=== PATIENT | female | born 1945 | race Caucasian/White ===

== ENCOUNTER 2022-01-31 13:41 | Inpatient (IN) | payer MEDICARE ==
[2022-01-31] MEDS ORDERED: SODIUM CHLORIDE 0.9% 500 ML 500 ML IV ONE (14:11)
[2022-01-31 14:34] LABS: Basophils % (A) 0 %; Eosinophils # (A) 0.1 k/uL (0-0.7); Eosinophils % (A) 1 %; HCT 47.7 % (34.0-46.0); HGB 16.3 gm/dL (11.4-16.0); Lymphocytes # (A) 1.9 k/uL (1.0-4.8); Lymphocytes % (A) 21 %; MCH 33.3 pg (25.0-35.0); MCHC 34.2 g/dL (31.0-37.0); MCV 97.6 fL (80.0-100.0); Mean Platelet Volume 7.6; Monocytes # (A) 0.5 k/uL (0-1.0); Monocytes % (A) 5 %; Neutrophils # (A) 6.8 k/uL (1.3-7.7); Neutrophils % (A) 72 %; Platelet Count 305 k/uL (150-450); RBC 4.89 m/uL (3.80-5.40); WBC 9.4 k/uL (3.8-10.6)
--- NOTE | 2022-01-31 14:39 | XR ---
EXAMINATION TYPE: XR chest 2V DATE OF EXAM: 01/31/2022 COMPARISON: 04/25/12 HISTORY: Shortness of breath TECHNIQUE: Frontal and lateral views of the chest are obtained. FINDINGS: Scattered senescent parenchymal changes noted. Hyperinflation compatible with COPD. No evidence for infiltrate. No evidence for atelectasis. Heart size is stable. Mediastinal structures are stable and grossly unremarkable. No evidence for hilar prominence. Degenerative changes dorsal spine. IMPRESSION: 1. No evidence for acute pulmonary disease.
[2022-01-31 14:45] LABS: ALT 25 U/L (4-34); AST 33 U/L (14-36); African American GFR (CKD) >90 (>60 ml/min/1.73 sqM); Albumin 4.3 g/dL (3.5-5.0); Alkaline Phosphatase 52 U/L (38-126); Anion Gap 11 mmol/L; Blood Urea Nitrogen 11 mg/dL (7-17); Calcium 9.7 mg/dL (8.4-10.2); Carbon Dioxide 19 mmol/L (22-30); Chloride 108 mmol/L (98-107); Glucose 139 mg/dL (74-99); Non-African American GFR(CKD) 87 (>60 ml/min/1.73 sqM); Sodium 138 mmol/L (137-145); Total Bilirubin 0.7 mg/dL (0.2-1.3); Total Protein 7.3 g/dL (6.3-8.2)
--- NOTE | 2022-01-31 14:52 | CT ---
EXAMINATION TYPE: CT brain wo con DATE OF EXAM: 01/31/2022 COMPARISON: CT brain 04/25/2022 HISTORY: Altered mental status. CT DLP: 1074.4 mGycm Automated exposure control for dose reduction was used. Helical acquisition through the brain. FINDINGS: Periventricular white matter shows patchy low attenuation. Low-attenuation is present within the basa l ganglia on the left which is an interval finding. There is no hemorrhage or hydrocephalus. Calvariu m is intact. Paranasal sinuses and mastoid air cells as visualized are well aerated. IMPRESSION: SUBACUTE INFARCT SUSPECTED ALONG THE ANTERIOR LIMB OF THE INTERNAL CAPSULE, WOLFF RADIATA. UNDERLYIN G CHRONIC SMALL VESSEL ISCHEMIC CHANGES. CONSIDER BRAIN MRI.
[2022-01-31 15:01] LABS: Potassium 3.9 mmol/L (3.5-5.1)
[2022-01-31 15:09] LABS: Prothrombin Time 10.4 sec (9.0-12.0)
[2022-01-31 15:11] LABS: Partial Thromboplastin Time 21.4 sec (22.0-30.0)
[2022-01-31 15:22] LABS: Appearance,Urine Clear (Clear); Bilirubin,Urine Negative (Negative); Blood,Urine Negative (Negative); Color,Urine Yellow; Glucose,Urine (UA) Negative (Negative); Ketones,Urine Negative (Negative); Leukocyte Esterase,Urine Negative (Negative); Nitrite,Urine Negative (Negative); Protein,Urine Negative (Negative); Specific Gravity,Urine 1.011 (1.001-1.035); Urobilinogen,Urine <2.0 mg/dL (<2.0)
[2022-01-31] MEDS ORDERED: ASPIRIN 325 MG TAB PO STA (15:34)
--- NOTE | 2022-01-31 15:34 | ED ---
General Adult HPI - General Chief complaint: Altered Mental Status Stated complaint: Altered Mental Status, Possible UTI Time Seen by Provider: 01/31/22 14:03 Source: patient, family, RN notes reviewed, old records reviewed Mode of arrival: wheelchair Limitations: no limitations - History of Present Illness Initial comments: 76-year-old female presenting for evaluation of increased confusion. Patient has previous diagnosis of dementia proximally 6 years ago. Over the past 2 weeks she's had increased decline. There is plans to see neurology. Primary care physician was concerned there may be urinary tract infection. The patient has no reported fever. She has been eating and drinking well. She has had some bizarre behavior including using Lomotil for well for a placed. There's been no dysuria. No chest pain. No abdominal pain. Symptoms have progressed over the course of several weeks. - Related Data Home Medications Medication Instructions Recorded Confirmed Thyroid,Pork [[place] Thyroid] 60 mg PO DAILY 01/31/22 01/31/22 glyBURIDE/METFORMIN HCL 2 tab PO DAILY 01/31/22 01/31/22 [glyBURIDE/METFORMIN HCL 5-500 mg] Allergies Allergy/AdvReac Type Severity Reaction Status Date / Time Penicillins Allergy Family Verified 01/31/22 15:39 History Review of Systems ROS Statement: Those systems with pertinent positive or pertinent negative responses have been documented in the HPI. ROS Other: All systems not noted in ROS Statement are negative. Past Medical History Past Medical History: Diabetes Mellitus, Hypertension, Thyroid Disorder History of Any Multi-Drug Resistant Organisms: None Reported Past Surgical History: No Surgical Hx Reported Past Psychological History: No Psychological Hx Reported Smoking Status: Never smoker Past Alcohol Use History: None Reported Past Drug Use History: None Reported General Exam Limitations: no limitations General appearance: alert, in no apparent distress Head exam: Present: atraumatic, normocephalic Eye exam: Present: normal appearance, PERRL ENT exam: Present: normal exam Neck exam: Present: normal inspection. Absent: tenderness, meningismus Respiratory exam: Present: normal lung sounds bilaterally. Absent: respiratory distress, wheezes, rales Cardiovascular Exam: Present: regular rate, normal rhythm GI/Abdominal exam: Present: soft. Absent: distended, tenderness, guarding Extremities exam: Present: normal inspection, normal capillary refill. Absent: pedal edema Back exam: Present: normal inspection Neurological exam: Present: alert, CN II-XII intact. Absent: motor sensory deficit Skin exam: Present: warm, dry, intact. Absent: cyanosis, diaphoretic Course Vital Signs 01/31/22 01/31/22 01/31/22 13:50 14:55 15:00 Temperature 98.8 F Pulse Rate 119 H 113 H 105 H Respiratory 20 18 18 Rate Blood Pressure 154/78 189/111 178/89 O2 Sat by Pulse 94 L 95 94 L Oximetry EKG Findings - EKG Comments: EKG Findings:: EKG: Sinus tachycardia rate of 6, AK interval 156, QRS duration 82, QTC 400, no ST segment elevation. Medical Decision Making - Medical Decision Making 76-year-old female with progressive confusion and altered mental status over the past 2 weeks. Patient has no pain complaints. Mildly hypertensive but otherwise stable vitals. She is in sinus rhythm. She has laboratory testing including CBC, CMP, urinalysis which is unremarkable. Chest x-ray is clear. Head CT does show concern for subacute internal capsule infarct. Patient will be admitted for further stroke evaluation. Case discussed with Dr. Trejo who will admit. Neurology placed on consult. - Lab Data Result diagrams: 01/31/22 14:20 01/31/22 14:20 Lab Results 01/31/22 01/31/22 01/31/22 Range/Units 14:20 14:20 14:20 WBC 9.4 (3.8-10.6) k/uL RBC 4.89 (3.80-5.40) m/uL Hgb 16.3 H (11.4-16.0) gm/dL Hct 47.7 H (34.0-46.0) % MCV 97.6 (80.0-100.0) fL MCH 33.3 (25.0-35.0) pg MCHC 34.2 (31.0-37.0) g/dL RDW 12.0 (11.5-15.5) % Plt Count 305 (150-450) k/uL MPV 7.6 Neutrophils % 72 % Lymphocytes % 21 % Monocytes % 5 % Eosinophils % 1 % Basophils % 0 % Neutrophils # 6.8 (1.3-7.7) k/uL Lymphocytes # 1.9 (1.0-4.8) k/uL Monocytes # 0.5 (0-1.0) k/uL Eosinophils # 0.1 (0-0.7) k/uL Basophils # 0.0 (0-0.2) k/uL PT 10.4 (9.0-12.0) sec INR 1.0 (<1.2) APTT 21.4 L (22.0-30.0) sec Sodium 138 (137-145) mmol/L Potassium 3.9 (3.5-5.1) mmol/L Chloride 108 H (98-107) mmol/L Carbon Dioxide 19 L (22-30) mmol/L Anion Gap 11 mmol/L BUN 11 (7-17) mg/dL Creatinine 0.65 (0.52-1.04) mg/dL Est GFR (CKD-EPI)AfAm >90 (>60 ml/min/1.73 sqM) Est GFR (CKD-EPI)NonAf 87 (>60 ml/min/1.73 sqM) Glucose 139 H (74-99) mg/dL Calcium 9.7 (8.4-10.2) mg/dL Total Bilirubin 0.7 (0.2-1.3) mg/dL AST 33 (14-36) U/L ALT 25 (4-34) U/L Alkaline Phosphatase 52 (38-126) U/L Total Protein 7.3 (6.3-8.2) g/dL Albumin 4.3 (3.5-5.0) g/dL Urine Color Urine Appearance (Clear) Urine pH (5.0-8.0) Ur Specific [place] (1.001-1.035) Urine Protein (Negative) Urine Glucose (UA) (Negative) Urine Ketones (Negative) Urine Blood (Negative) Urine Nitrite (Negative) Urine Bilirubin (Negative) Urine Urobilinogen (<2.0) mg/dL Ur Leukocyte Esterase (Negative) 01/31/22 Range/Units 15:17 WBC (3.8-10.6) k/uL RBC (3.80-5.40) m/uL Hgb (11.4-16.0) gm/dL Hct (34.0-46.0) % MCV (80.0-100.0) fL MCH (25.0-35.0) pg MCHC (31.0-37.0) g/dL RDW (11.5-15.5) % Plt Count (150-450) k/uL MPV Neutrophils % % Lymphocytes % % Monocytes % % Eosinophils % % Basophils % % Neutrophils # (1.3-7.7) k/uL Lymphocytes # (1.0-4.8) k/uL Monocytes # (0-1.0) k/uL Eosinophils # (0-0.7) k/uL Basophils # (0-0.2) k/uL PT (9.0-12.0) sec INR (<1.2) APTT (22.0-30.0) sec Sodium (137-145) mmol/L Potassium (3.5-5.1) mmol/L Chloride (98-107) mmol/L Carbon Dioxide (22-30) mmol/L Anion Gap mmol/L BUN (7-17) mg/dL Creatinine (0.52-1.04) mg/dL Est GFR (CKD-EPI)AfAm (>60 ml/min/1.73 sqM) Est GFR (CKD-EPI)NonAf (>60 ml/min/1.73 sqM) Glucose (74-99) mg/dL Calcium (8.4-10.2) mg/dL Total Bilirubin (0.2-1.3) mg/dL AST (14-36) U/L ALT (4-34) U/L Alkaline Phosphatase (38-126) U/L Total Protein (6.3-8.2) g/dL Albumin (3.5-5.0) g/dL Urine Color Yellow Urine Appearance Clear (Clear) Urine pH 5.0 (5.0-8.0) Ur Specific [place] 1.011 (1.001-1.035) Urine Protein Negative (Negative) Urine Glucose (UA) Negative (Negative) Urine Ketones Negative (Negative) Urine Blood Negative (Negative) Urine Nitrite Negative (Negative) Urine Bilirubin Negative (Negative) Urine Urobilinogen <2.0 (<2.0) mg/dL Ur Leukocyte Esterase Negative (Negative) Disposition Clinical Impression: Altered mental status, CVA (cerebral vascular accident) Disposition: ADMITTED IP TO THIS HOSP Condition: Stable Is patient prescribed a controlled substance at d/c from ED?: No Referrals: Tara Cook MD [Primary Care Provider] - 1-2 days Decision to Admit Reason: Admit from EC Decision Date: 01/31/22 Decision Time: 15:56
--- NOTE | 2022-01-31 17:47 | US ---
EXAMINATION TYPE: US carotid duplex BILAT DATE OF EXAM: 01/31/2022 COMPARISON: NONE CLINICAL HISTORY: Stenosis. Dementia EXAM MEASUREMENTS: RIGHT: Peak Systolic Velocity (PSV) cm/sec ----- Right CCA: 50.3 ----- Right ICA: 49.4 ----- Right ECA: 66.4 ICA/CCA ratio: 1.0 RIGHT: End Diastole cm/sec ----- Right CCA: 10.1 ----- Right ICA: 11.9 ----- Right ECA: 8.8 LEFT: Peak Systolic Velocity (PSV) cm/sec ----- Left CCA: 64.2 ----- Left ICA: 73.8 ----- Left ECA: 66.8 ICA/CCA ratio: 1.1 LEFT: End Diastole cm/sec ----- Left CCA: 14.5 ----- Left ICA: 21.5 ----- Left ECA: 7.5 VERTEBRALS (direction of flow): Right Vertebral: Antegrade Left Vertebral: Antegrade Rhythm: Normal Mild homogeneous plaque with no significant stenosis IMPRESSION: Less than 50% stenosis of the bilateral carotid systems. Criteria for Assigning % of Stenosis / Diameter reduction (Estimation based on the indirect measurements of the internal carotid artery velocities (ICA PSV). 1. Normal (no stenosis)=ICA PSV < 125 cm/s: ratio < 2.0: ICA EDV<40 cm/s. 2. Less than 50% stenosis=ICA PSV < 125 cm/s: ratio < 2.0: ICA EDV<40 cm/s. 3. 50 to 69% stenosis=ICA PSV of 125 to 230 cm/s: ration 2.0 ? 4.0: ICA EDV 40-100 cm/s. 4. Greater than 70% stenosis to near occlusion= ICA PSV > 230 cm/s: ratio > 4.0: ICA EDV > 100 cm/s. 5. Near occlusion= ICA PSV velocities may be low or undetectable: variable ratio and ICA EDV. 6. Total occlusion=unable to detect flow.
[2022-01-31] MEDS: SODIUM CHLORIDE 0.9% 1,000 ML IV SCH (22:34)
[2022-02-01] MEDS: amLODIPine 5 MG TAB PO SCH ×2 (00:06→07:48)
[2022-02-01 06:21] LABS: Glucose,Whole Blood 136 mg/dL (75-99)
[2022-02-01] MEDS: ASPIRIN 325 MG TAB PO SCH (07:48)
[2022-02-01] MEDS: SODIUM CHLORIDE 0.9% 1,000 ML IV SCH ×2 (07:49→16:54)
--- NOTE | 2022-02-01 11:09 | P.HPIM ---
History of Present Illness H&P Date: 02/01/22 Janene Ponce, is a 76-year-old [facility] emergency room with a chief complaint of worsening confusion, patient has a known history of dementia for several years, however her mental status has declined significantly over the last 2 weeks per caregiver. She was evaluated in the emergency room vital examination on presentation revealed a temperature of 98.8 pulse 119 respiration 20 blood pressure 154/78 pulse ox 94% on room air Laboratory data revealed a white blood count of 9.4 hemoglobin 16.3 platelet count 305 sodium 138 potassium 3.9 chloride 108 CO2 19 BUN 11 creatinine 0.65, urine analysis was normal. Testing in the emergency room revealed EKG done in the emergency room revealed evidence of sinus tachycardia and bilateral atrial enlargement, computed tomography scan of the brain revealed evidence of subacute infarct along the anterior limb of the internal capsule and underlying chronic small vessel ischemic changes. Chest x-ray done in the emergency room revealed no evidence for acute pulmonary disease. Patient was admitted to medical floor for further evaluation and treatment, echocardiogram and carotid Doppler were ordered cardiology consultation and neur ology consultation was requested. Past medical history is significant for history of hypertension, history of [id number] diabetes mellitus, history of hypothyroidism, and underlying history of dementia On review of systems patient is alert confused in no apparent distress she does not know why she is in the hospital she is denying any symptoms at this time there is no fever or chills no headache or dizziness no chest pain no shortness of breath no cough no nausea or vomiting no abdominal pain no diarrhea and no urinary symptoms, patient denies any weakness or numbness in any of her extremities she denies any change in her vision speech or gait. Past Medical History Past Medical History: Diabetes Mellitus, Hypertension, Thyroid Disorder History of Any Multi-Drug Resistant Organisms: None Reported Past Surgical History: No Surgical Hx Reported Past Anesthesia/Blood Transfusion Reactions: Unable to Obtain Past Psychological History: No Psychological Hx Reported Smoking Status: Never smoker Past Alcohol Use History: None Reported Past Drug Use History: None Reported Medications and Allergies Home Medications Medication Instructions Recorded Confirmed Type Thyroid,Pork [[place] Thyroid] 60 mg PO DAILY 01/31/22 01/31/22 History glyBURIDE/METFORMIN HCL 2 tab PO DAILY 01/31/22 01/31/22 History [glyBURIDE/METFORMIN HCL 5-500 mg] Allergies Allergy/AdvReac Type Severity Reaction Status Date / Time Penicillins Allergy Family Verified 01/31/22 15:39 History Physical Exam Vitals: Vital Signs Temp Pulse Pulse Resp BP BP Pulse Ox 02/01/22 08:00 98.3 F 84 16 174/79 94 L 02/01/22 03:19 72 16 177/79 93 L 02/01/22 01:32 16 02/01/22 00:06 165/97 01/31/22 23:20 97.9 F 78 16 187/88 94 L 01/31/22 21:18 97.9 F 76 16 184/92 96 01/31/22 20:00 16 01/31/22 19:00 105 H 18 168/84 98 01/31/22 17:00 89 18 172/99 97 01/31/22 15:00 105 H 18 178/89 94 L 01/31/22 14:55 113 H 18 189/111 95 01/31/22 13:50 98.8 F 119 H 20 154/78 94 L Intake and Output 01/31/22 02/01/22 02/01/22 22:59 06:59 14:59 Intake Total 260 Balance 260 Intake: Oral 260 Other: Voiding Method Toilet Toilet # Voids 1 Weight 58.967 kg In general patient is alert, confused, in no distress HEENT head normocephalic and atraumatic Neck is supple no JVD no goiter no lymphadenopathy no carotid bruit Chest examination is clear to auscultation no crackles no wheezing Cardiac exam reveals regular heart sounds S1 and S2 no gallops no murmurs Abdomen is soft nontender no organomegaly with normal bowel sounds Extremity exam reveals no edema no cyanosis or clubbing Neurological examination reveals no gross focal deficits Results CBC & Chem 7: 01/31/22 14:20 01/31/22 14:20 Labs: Abnormal Lab Results - Last 24 Hours (Table) 01/31/22 01/31/22 01/31/22 Range/Units 14:20 14:20 14:20 Hgb 16.3 H (11.4-16.0) gm/dL Hct 47.7 H (34.0-46.0) % APTT 21.4 L (22.0-30.0) sec Chloride 108 H (98-107) mmol/L Carbon Dioxide 19 L (22-30) mmol/L Glucose 139 H (74-99) mg/dL POC Glucose (mg/dL) (75-99) mg/dL 02/01/22 Range/Units 06:18 Hgb (11.4-16.0) gm/dL Hct (34.0-46.0) % APTT (22.0-30.0) sec Chloride (98-107) mmol/L Carbon Dioxide (22-30) mmol/L Glucose (74-99) mg/dL POC Glucose (mg/dL) 136 H (75-99) mg/dL Thrombosis Risk Factor Assmnt - Choose All That Apply Any of the Below Risk Factors Present?: Yes Each Risk Factor Represents 3 Points: Age 75 years or older Thrombosis Risk Factor Assessment Total Risk Factor Score: 3 Thrombosis Risk Factor Assessment Level: Moderate Risk Assessment and Plan Plan: Worsening mental status over the last 2 weeks Evidence of subacute infarct on computed tomography scan of the brain Hypertension with elevated blood pressure on presentation at 189/111 apparently patient used to be on blood pressure medications in the past however she stopped taking them Underlying history of [id number] diabetes mellitus Underlying history of hypothyroidism At this time patient is admitted to telemetry floor Echocardiogram and carotid Doppler were ordered Cardiology consultation and neurology consultation was requested Patient was started on Norvasc 5 mg by mouth daily For DVT prophylaxis Will start Lovenox 40 mg subcu daily For GI prophylaxis Protonix 40 mg by mouth daily Physical therapy and occupational therapy consult requested Will follow
[2022-02-01 11:11] LABS: Glucose,Whole Blood 175 mg/dL (75-99)
[2022-02-01] MEDS: LOSARTAN 25 MG TAB PO SCH (11:36)
[2022-02-01] MEDS: THYROID, PORK 30 MG TAB PO SCH (11:36)
[2022-02-01] MEDS: ENOXAPARIN 40 MG/0.4 ML SYRINGE SQ SCH (11:36)
[2022-02-01 11:55] LABS: Chol/HDL Ratio 1.97 Ratio; LDL Cholesterol,Calculated 57.3 mg/dL (0.0-131.0); VLDL Calculation 10.84 mg/dL (5.00-40.00)
--- NOTE | 2022-02-01 12:44 | ECHOF ---
Referral Reason:Thrombus MEASUREMENTS -------- HEIGHT: 147.3 cm WEIGHT: 59.0 kg BP: RVIDd: 2.4 cm (< 3.3) IVSd: 1.2 cm (0.6 - 1.1) LVIDd: 4.3 cm (3.9 - 5.3) LVPWd: 1.0 cm (0.6 - 1.1) IVSs: 1.4 cm LVIDs: 2.5 cm LVPWs: 1.7 cm LA Diam: 3.3 cm (2.7 - 3.8) LAESV Index (A-L): 22.75 ml/m Ao Diam: 3.0 cm (2.0 - 3.7) AV Cusp: 1.6 cm (1.5 - 2.6) MV EXCURSION: 10.716 mm (> 18.000) MV EF SLOPE: 126 mm/s (70 - 150) EPSS: 0.5 cm RAP: 5.00 mmHg RVSP: 28.93 mmHg FINDINGS -------- Sinus rhythm. This was a technically adequate study. The left ventricular size is normal. There is borderline concentric left ventricular hypertrophy. Overall left ventricular systolic function is normal with, an EF between 55 - 60 %. The right ventricle is normal in size. Normal LA size by volume 22+/-6 ml/m2. The right atrium is normal in size. Interatrial and interventricular septum intact. There is mild aortic valve sclerosis. Trace to mild aortic regurgitation. The mitral valve leaflets are mildly thickened. Mild mitral annular calcification present. There is trace mitral regurgitation. Mild tricuspid regurgitation present. Right ventricular systolic pressure is normal at < 35 mmHg. Trace/mild (physiologic) pulmonic regurgitation. The aortic root size is normal. Normal inferior vena cava with normal inspiratory collapse consistent with estimated right atrial pre ssure of 5 mmHg. There is no pericardial effusion. CONCLUSIONS -------- 1. The left ventricular size is normal. 2. There is borderline concentric left ventricular hypertrophy. 3. Overall left ventricular systolic function is normal with, an EF between 55 - 60 %. 4. There is mild aortic valve sclerosis. 5. Trace to mild aortic regurgitation. 6. The mitral valve leaflets are mildly thickened. 7. Mild mitral annular calcification present. 8. There is trace mitral regurgitation. 9. Mild tricuspid regurgitation present. 10. Trace/mild (physiologic) pulmonic regurgitation. 11. There is no pericardial effusion. CIGAR PATCHER: Stephany Lagos RDCS
--- NOTE | 2022-02-01 13:51 | P.CRDCN ---
History of Present Illness History of present illness: 76-year-old lady with history of [id number] diabetes hypothyroidism and dementia is admitted to hospital with worsening confusion of 2-3 weeks duration. She has baseline confusion and memory problems related to her dementia but this has gotten particularly worse over the last 3 weeks due to this she came to the hospital and her evaluation revealed a subacute infarct. She has been evaluated by neurology and cardiology has also been consulted. An echocardiogram on this admission revealed normal LV systolic function with an ejection fraction of 55-60% there is mild aortic regurgitation Carotid duplex study revealed less than 50% bilateral carotid stenosis. At the time of my evaluation patient appears somewhat confused and she is a poor historian. Review of systems: Not able to obtain from patient who is confused General: The patient is awake and alert, in no distress, and does not appear acutely ill. Skin: Skin is warm and dry and no rashes or lesions are noted. Eye: Pupils are equal, round and reactive to light, extra-ocular movements are intact; there is normal conjunctiva bilaterally. Ears, nose, mouth and throat: There are moist mucous membranes and no oral lesions. Neck: The neck is supple, there is no tenderness or JVD. Cardiovascular: There is a regular rate and rhythm. No murmur, rub or gallop is appreciated. Respiratory: Lungs are clear to auscultation, respirations are non-labored, breath sounds are equal. Gastrointestinal: Soft, non-distended, non-tender abdomen without masses or organomegaly noted. There is no rebound or guarding present. Bowel sounds are unremarkable. Back: There is no tenderness to palpation in the midline. There is no obvious deformity. Musculoskeletal: Normal ROM, no tenderness, There is no pedal edema. There is no calf tenderness or swelling. Extremities: No edema. Vascular: Femoral pulse is normal. Posterior tibial pulses are normal .Dorsalis pedis is palpable. Neurological: Detailed neurological exam could not be done Psychiatric: Pleasantly confused Assessment and plan: Worsening confusion secondary to CVA History of hypertension Will control her blood pressure optimally. We'll obtain an agitated saline contrast study on Thursday and if necessary perform a transesophageal echo Remains in sinus rhythm will watch her on telemetric Past Medical History Past Medical History: Diabetes Mellitus, Hypertension, Thyroid Disorder History of Any Multi-Drug Resistant Organisms: None Reported Past Surgical History: No Surgical Hx Reported Past Anesthesia/Blood Transfusion Reactions: Unable to Obtain Past Psychological History: No Psychological Hx Reported Smoking Status: Never smoker Past Alcohol Use History: None Reported Past Drug Use History: None Reported Medications and Allergies Home Medications Medication Instructions Recorded Confirmed Type Thyroid,Pork [[place] Thyroid] 60 mg PO DAILY 01/31/22 01/31/22 History glyBURIDE/METFORMIN HCL 2 tab PO DAILY 01/31/22 01/31/22 History [glyBURIDE/METFORMIN HCL 5-500 mg] Allergies Allergy/AdvReac Type Severity Reaction Status Date / Time Penicillins Allergy Family Verified 01/31/22 15:39 History Physical Exam Vitals: Vital Signs Temp Pulse Pulse Resp BP BP Pulse Ox 02/01/22 11:00 98.2 F 103 H 18 166/74 93 L 02/01/22 08:00 98.3 F 84 16 174/79 94 L 02/01/22 03:19 72 16 177/79 93 L 02/01/22 01:32 16 02/01/22 00:06 165/97 01/31/22 23:20 97.9 F 78 16 187/88 94 L 01/31/22 21:18 97.9 F 76 16 184/92 96 01/31/22 20:00 16 01/31/22 19:00 105 H 18 168/84 98 01/31/22 17:00 89 18 172/99 97 01/31/22 15:00 105 H 18 178/89 94 L 01/31/22 14:55 113 H 18 189/111 95 01/31/22 13:50 98.8 F 119 H 20 154/78 94 L Intake and Output 01/31/22 02/01/22 02/01/22 22:59 06:59 14:59 Intake Total 260 Balance 260 Intake: Oral 260 Other: Voiding Method Toilet Toilet # Voids 1 Weight 58.967 kg Results 01/31/22 14:20 01/31/22 14:20 Cardiac Enzymes 01/31/22 Range/Units 14:20 AST 33 (14-36) U/L Coagulation 01/31/22 Range/Units 14:20 PT 10.4 (9.0-12.0) sec APTT 21.4 L (22.0-30.0) sec Lipids 01/31/22 Range/Units 14:20 Triglycerides 54.20 (0.00-149.00) mg/dL Cholesterol 138.00 (0.00-200.00) mg/dL HDL Cholesterol 69.90 H (40.00-60.00) mg/dL Cholesterol/HDL Ratio 1.97 Ratio CBC 01/31/22 Range/Units 14:20 WBC 9.4 (3.8-10.6) k/uL RBC 4.89 (3.80-5.40) m/uL Hgb 16.3 H (11.4-16.0) gm/dL Hct 47.7 H (34.0-46.0) % Plt Count 305 (150-450) k/uL Comprehensive Metabolic Panel 01/31/22 Range/Units 14:20 Sodium 138 (137-145) mmol/L Potassium 3.9 (3.5-5.1) mmol/L Chloride 108 H (98-107) mmol/L Carbon Dioxide 19 L (22-30) mmol/L BUN 11 (7-17) mg/dL Creatinine 0.65 (0.52-1.04) mg/dL Glucose 139 H (74-99) mg/dL Calcium 9.7 (8.4-10.2) mg/dL AST 33 (14-36) U/L ALT 25 (4-34) U/L Alkaline Phosphatase 52 (38-126) U/L Total Protein 7.3 (6.3-8.2) g/dL Albumin 4.3 (3.5-5.0) g/dL Current Medications Generic Name Dose Route Start Last Admin Trade Name Freq PRN Reason Stop Dose Admin Amlodipine Besylate 5 mg 01/31/22 23:45 02/01/22 07:48 Amlodipine 5 Mg Tab PO 5 mg DAILY GRACIELA Administration Aspirin 325 mg 02/01/22 09:00 02/01/22 07:48 Aspirin 325 Mg Tab PO 325 mg DAILY GRACIELA Administration Enoxaparin Sodium 40 mg 02/01/22 10:00 02/01/22 11:36 Enoxaparin 40 Mg/0.4 Ml Syringe SQ 40 mg DAILY GRACIELA Administration Sodium Chloride 1,000 mls @ 75 mls/hr 01/31/22 15:45 02/01/22 07:49 Saline 0.9% IV 75 mls/hr .[id number] GRACIELA Administration Losartan Potassium 25 mg 02/01/22 10:15 02/01/22 11:36 Losartan 25 Mg Tab PO 25 mg DAILY GRACIELA Administration Pantoprazole Sodium 40 mg 02/02/22 07:30 Pantoprazole 40 Mg Tablet PO [id number] GRACIELA Thyroid 60 mg 02/01/22 12:00 02/01/22 11:36 Thyroid, Pork 30 Mg Tab PO 60 mg DAILY GRACIELA Administration Intake and Output 01/31/22 02/01/22 02/01/22 22:59 06:59 14:59 Intake Total 260 Balance 260 Intake: Oral 260 Other: Voiding Method Toilet Toilet # Voids 1 Weight 58.967 kg 01/31/22 14:20 01/31/22 14:20
[2022-02-01 16:49] LABS: Glucose,Whole Blood 138 mg/dL (75-99)
--- NOTE | 2022-02-01 17:08 | P.CNNES ---
History of Present Illness Consult date: 02/01/22 Chief complaint: Subacute infarct History of Present Illness: The patient is a 76-year-old female who is seen in neurologic consultation on February 01, 2022, via teleneurology. History is obtained entirely from the chart. The patient is unable to provide any history secondary to her dementia. Apparently the patient was brought in because of increasing confusion, over the previous several days. The patient has a history of dementia, diabetes mellitus, hypertension CT scan of the brain performed in the emergency department reveals evidence of a subacute infarct involving the anterior limb of the internal capsule and lane radiata (side not indicated per report). On my review of the imaging the infarct is noted on the left side of the brain. The patient herself does not believe she is had a stroke. She denies headache, difficulty with speech, difficulty swallowing and weakness. Review of Systems Unable to obtain secondary to mental status patient Past Medical History Past Medical History: Diabetes Mellitus, Hypertension, Thyroid Disorder History of Any Multi-Drug Resistant Organisms: None Reported Past Surgical History: No Surgical Hx Reported Past Anesthesia/Blood Transfusion Reactions: Unable to Obtain Past Psychological History: No Psychological Hx Reported Smoking Status: Never smoker Past Alcohol Use History: None Reported Past Drug Use History: None Reported Medications and Allergies Home Medications Medication Instructions Recorded Confirmed Type Thyroid,Pork [[place] Thyroid] 60 mg PO DAILY 01/31/22 01/31/22 History glyBURIDE/METFORMIN HCL 2 tab PO DAILY 01/31/22 01/31/22 History [glyBURIDE/METFORMIN HCL 5-500 mg] Allergies Allergy/AdvReac Type Severity Reaction Status Date / Time Penicillins Allergy Family Verified 01/31/22 15:39 History Physical Examination - Vital Signs Vital Signs: Vital Signs Temp Pulse Pulse Resp BP BP Pulse Ox 02/01/22 08:00 98.3 F 84 16 174/79 94 L 02/01/22 03:19 72 16 177/79 93 L 02/01/22 01:32 16 02/01/22 00:06 165/97 01/31/22 23:20 97.9 F 78 16 187/88 94 L 01/31/22 21:18 97.9 F 76 16 184/92 96 01/31/22 20:00 16 01/31/22 19:00 105 H 18 168/84 98 01/31/22 17:00 89 18 172/99 97 01/31/22 15:00 105 H 18 178/89 94 L 01/31/22 14:55 113 H 18 189/111 95 01/31/22 13:50 98.8 F 119 H 20 154/78 94 L Intake and Output 01/31/22 02/01/22 02/01/22 22:59 06:59 14:59 Intake Total 260 Balance 260 Intake: Oral 260 Other: Voiding Method Toilet Toilet # Voids 1 Weight 58.967 kg Gen.: The patient is reclining in the bed. She is well-nourished, well- developed and in no acute distress. HEENT: Head is atraumatic, normocephalic. Fundus not visualized. There is no scleral icterus. Mucous membranes are moist. Neck: Supple without carotid bruits Heart: Regular rate and rhythm Lungs: Clear to auscultation Neurological examination Mental status: The patient is awake and alert. She is markedly hard of hearing. Speech is clear. Cranial nerves: Pupils are equal at 3 mm and reactive. Visual field testing is grossly intact. Extraocular movements are intact. There is no nystagmus. Facial sensation is grossly intact. There is flattening of the right nasolabial fold. Uvula and palate are midline. Shoulder shrug is symmetric. Tongue protrudes to the right of midline. Motor: Strength is 5/5 throughout. Coordination: Finger to nose and rapid alternating movements are intact. Deep tendon reflexes: 2+/4+ throughout. Plantar responses are not assessed. Sensation: Grossly intact to light touch throughout. There is no extinction with double simultaneous stimulation. Gait: Not assessed Results - Laboratory Findings CBC and BMP: 01/31/22 14:20 01/31/22 14:20 Abnormal Lab Findings: Abnormal Labs 01/31/22 01/31/22 01/31/22 14:20 14:20 14:20 Hgb 16.3 H Hct 47.7 H APTT 21.4 L Chloride 108 H Carbon Dioxide 19 L Glucose 139 H POC Glucose (mg/dL) 02/01/22 06:18 Hgb Hct APTT Chloride Carbon Dioxide Glucose POC Glucose (mg/dL) 136 H Assessment and Plan Assessment: 1. Subacute ischemic infarct involving the anterior limb of the left internal capsule. CT scan images have been personally reviewed by myself. The patient has very subtle findings on examination, consistent with this infarct: Slight flattening of the right nasolabial fold and tongue protrusion to the right. 2. History of dementia 3. History of diabetes mellitus 4. History of thyroid disease Plan: 1. Agree with stroke workup including 2-D echocardiogram, carotid Doppler, laboratory evaluation, speech therapy consultation, OT and PT evaluations. 2. Although MRI of the brain would be more helpful to document age of stroke, I suspect the patient will not be able to tolerate MRI of the brain. 3. Dual antiplatelet therapy should be initiated: Aspirin 81 mg and Plavix 75 mg daily 4. High-dose statin should be started 5. Heart healthy diet Time with Patient: Greater than 30 (spent 35 minutes with patient's via telemedicine)
[2022-02-01 20:17] LABS: Glucose,Whole Blood 153 mg/dL (75-99)
[2022-02-02] MEDS: PANTOPRAZOLE 40 MG TABLET PO SCH (06:26)
[2022-02-02] MEDS: SODIUM CHLORIDE 0.9% 1,000 ML IV SCH ×2 (06:26→19:55)
[2022-02-02 06:34] LABS: Glucose,Whole Blood 141 mg/dL (75-99)
[2022-02-02] MEDS: ENOXAPARIN 40 MG/0.4 ML SYRINGE SQ SCH (08:44)
[2022-02-02] MEDS: THYROID, PORK 30 MG TAB PO SCH (08:44)
[2022-02-02] MEDS: amLODIPine 5 MG TAB PO SCH (08:45)
[2022-02-02] MEDS: LOSARTAN 25 MG TAB PO SCH (08:45)
[2022-02-02] MEDS: ASPIRIN 325 MG TAB PO SCH (08:45)
[2022-02-02 09:35] LABS: Basophils % (A) 1 %; Eosinophils % (A) 0 %; HCT 45.9 % (34.0-46.0); HGB 15.1 gm/dL (11.4-16.0); Lymphocytes # (A) 1.3 k/uL (1.0-4.8); Lymphocytes % (A) 18 %; MCH 32.8 pg (25.0-35.0); MCHC 32.8 g/dL (31.0-37.0); MCV 99.8 fL (80.0-100.0); Mean Platelet Volume 7.6; Monocytes # (A) 0.4 k/uL (0-1.0); Monocytes % (A) 6 %; Neutrophils # (A) 5.4 k/uL (1.3-7.7); Neutrophils % (A) 74 %; Platelet Count 285 k/uL (150-450); RDW 12.8 % (11.5-15.5); WBC 7.3 k/uL (3.8-10.6)
[2022-02-02 09:56] LABS: ALT 21 U/L (4-34); AST 28 U/L (14-36); African American GFR (CKD) >90 (>60 ml/min/1.73 sqM); Albumin 3.7 g/dL (3.5-5.0); Alkaline Phosphatase 49 U/L (38-126); Anion Gap 9 mmol/L; Blood Urea Nitrogen 12 mg/dL (7-17); Calcium 8.7 mg/dL (8.4-10.2); Carbon Dioxide 23 mmol/L (22-30); Chloride 107 mmol/L (98-107); Glucose 238 mg/dL (74-99); Non-African American GFR(CKD) 85 (>60 ml/min/1.73 sqM); Sodium 139 mmol/L (137-145); Total Bilirubin 0.7 mg/dL (0.2-1.3); Total Protein 6.2 g/dL (6.3-8.2)
--- NOTE | 2022-02-02 10:55 | P.PN ---
Subjective Progress Note Date: 02/02/22 Janene Ponce, is a 76-year-old [facility] emergency room with a chief complaint of worsening confusion, patient has a known history of dementia for several years, however her mental status has declined significantly over the last 2 weeks per caregiver. She was evaluated in the emergency room vital examination on presentation revealed a temperature of 98.8 pulse 119 respiration 20 blood pressure 154/78 pulse ox 94% on room air Laboratory data revealed a white blood count of 9.4 hemoglobin 16.3 platelet count 305 sodium 138 potassium 3.9 chloride 108 CO2 19 BUN 11 creatinine 0.65, u rine analysis was normal. Testing in the emergency room revealed EKG done in the emergency room revealed evidence of sinus tachycardia and bilateral atrial enlargement, computed tomography scan of the brain revealed evidence of subacute infarct along the anterior limb of the internal capsule and underlying chronic small vessel ischemic changes. Chest x-ray done in the emergency room revealed no evidence for acute pulmonary disease. Patient was admitted to medical floor for further evaluation and treatment, echocardiogram and carotid Doppler were ordered cardiology consultation and neurology consultation was requested. Past medical history is significant for history of hypertension, history of [id number]-juovagsut diabetes mellitus, history of hypothyroidism, and underlying history of dementia On review of systems patient is alert confused in no apparent distress she does not know why she is in the hospital she is denying any symptoms at this time there is no fever or chills no headache or dizziness no chest pain no shortness of breath no cough no nausea or vomiting no abdominal pain no diarrhea and no urinary symptoms, patient denies any weakness or numbness in any of her extremi ties she denies any change in her vision speech or gait. On 02/02/2022 patient is alert and oriented resting comfortably in bed. Carotid Doppler negative. Sinus rhythm with an EF of 55-60%. Current vitals temp 97.9, heart rate 89, respiratory rate 14, blood pressure 160/71 with also has a 98% on room air. Patient denies chest pain or shortness breath. Patient denies nausea vomiting or diarrhea. Patient denies any urinary burning or frequency Objective - Vital Signs Vital signs: Vital Signs Temp 97.9 F 02/02/22 08:00 Pulse 89 02/02/22 08:00 Resp 14 02/02/22 08:00 BP 160/71 02/02/22 08:00 Pulse Ox 95 02/02/22 08:04 Intake & Output 02/01/22 02/02/22 02/02/22 17:59 06:59 18:59 Intake Total 120 Output Total Balance 120 Intake: IV Sodium Chloride 0.9% 1, 000 ml @ 75 mls/hr IV . [id number] [facility] Rx#:[id number] Oral 120 Output: Urine Other: Voiding Method # Voids # Bowel Movements - Exam In general patient is alert, confused, in no distress HEENT head normocephalic and atraumatic Neck is supple no JVD no goiter no lymphadenopathy no carotid bruit Chest examination is clear to auscultation no crackles no wheezing Cardiac exam reveals regular heart sounds S1 and S2 no gallops no murmurs Abdomen is soft nontender no organomegaly with normal bowel sounds Extremity exam reveals no edema no cyanosis or clubbing Neurological examination reveals no gross focal deficits - Labs CBC & Chem 7: 02/02/22 08:59 02/02/22 08:59 Labs: Abnormal Lab Results - Last 24 Hours (Table) 01/31/22 01/31/22 02/01/22 Range/Units 14:20 14:20 11:10 Glucose (74-99) mg/dL POC Glucose (mg/dL) 175 H (75-99) mg/dL Hemoglobin A1c 8.7 H (0.0-6.0) % Total Protein (6.3-8.2) g/dL HDL Cholesterol 69.90 H (40.00-60.00) mg/dL 02/01/22 02/01/22 02/02/22 Range/Units 16:47 20:14 06:32 Glucose (74-99) mg/dL POC Glucose (mg/dL) 138 H 153 H 141 H (75-99) mg/dL Hemoglobin A1c (0.0-6.0) % Total Protein (6.3-8.2) g/dL HDL Cholesterol (40.00-60.00) mg/dL 02/02/22 Range/Units 08:59 Glucose 238 H (74-99) mg/dL POC Glucose (mg/dL) (75-99) mg/dL Hemoglobin A1c (0.0-6.0) % Total Protein 6.2 L (6.3-8.2) g/dL HDL Cholesterol (40.00-60.00) mg/dL Assessment and Plan Plan: Worsening mental status over the last 2 weeks Evidence of subacute infarct on computed tomography scan of the brain Hypertension with elevated blood pressure on presentation at 189/111 apparently patient used to be on blood pressure medications in the past however she stopped taking them Underlying history of [id number] diabetes mellitus Underlying history of hypothyroidism At this time patient is admitted to telemetry floor Cardiology consultation and neurology consultation was requested Patient was started on Norvasc 5 mg by mouth daily For DVT prophylaxis Will start Lovenox 40 mg subcu daily For GI prophylaxis Protonix 40 mg by mouth daily Physical therapy and occupational therapy consult requested Will follow
--- NOTE | 2022-02-02 11:11 | P.PN ---
Subjective Patient remains pleasantly confused this morning. Denies chest pain or difficulty in breathing. On exam her blood pressure is poorly controlled. Chest exam reveals good air entry. Heart exam reveals first and second heart sounds no gallop there is a systolic murmur at the left lower sternal border abdomen is soft examination extremities did not reveal any edema per for pulses are felt Labs show a hemoglobin of 15.1 F [place] is 285 potassium is 4 creatinine is 0.69 Assessment and plan: Recurrent CVA Uncontrolled hypertension I will increase the dose of amlodipine to 10 mg daily. Please repeat a limited echo with saline contrast study Objective - Vital Signs Vital signs: Vital Signs Temp 97.9 F 02/02/22 08:00 Pulse 89 02/02/22 08:00 Resp 14 02/02/22 08:00 BP 160/71 02/02/22 08:00 Pulse Ox 95 02/02/22 08:04 Intake & Output 02/01/22 02/02/22 02/02/22 17:59 06:59 18:59 Intake Total 120 Output Total Balance 120 Intake: IV Sodium Chloride 0.9% 1, 000 ml @ 75 mls/hr IV . [id number] [facility] Rx#:[id number] Oral 120 Output: Urine Other: Voiding Method # Voids # Bowel Movements - Labs CBC & Chem 7: 02/02/22 08:59 02/02/22 08:59 Labs: Abnormal Lab Results - Last 24 Hours (Table) 01/31/22 01/31/22 02/01/22 Range/Units 14:20 14:20 11:10 Glucose (74-99) mg/dL POC Glucose (mg/dL) 175 H (75-99) mg/dL Hemoglobin A1c 8.7 H (0.0-6.0) % Total Protein (6.3-8.2) g/dL HDL Cholesterol 69.90 H (40.00-60.00) mg/dL 02/01/22 02/01/22 02/02/22 Range/Units 16:47 20:14 06:32 Glucose (74-99) mg/dL POC Glucose (mg/dL) 138 H 153 H 141 H (75-99) mg/dL Hemoglobin A1c (0.0-6.0) % Total Protein (6.3-8.2) g/dL HDL Cholesterol (40.00-60.00) mg/dL 02/02/22 Range/Units 08:59 Glucose 238 H (74-99) mg/dL POC Glucose (mg/dL) (75-99) mg/dL Hemoglobin A1c (0.0-6.0) % Total Protein 6.2 L (6.3-8.2) g/dL HDL Cholesterol (40.00-60.00) mg/dL
[2022-02-02 11:22] LABS: Glucose,Whole Blood 131 mg/dL (75-99)
[2022-02-02 17:06] LABS: Glucose,Whole Blood 168 mg/dL (75-99)
[2022-02-02 19:58] LABS: Glucose,Whole Blood 232 mg/dL (75-99)
[2022-02-02] MEDS: INSULIN ASPART (NovoLOG) 100 UNIT/ML VIAL SQ SCH (20:29)
[2022-02-03 06:27] LABS: Glucose,Whole Blood 159 mg/dL (75-99)
[2022-02-03] MEDS: PANTOPRAZOLE 40 MG TABLET PO SCH (06:32)
[2022-02-03] MEDS: INSULIN ASPART (NovoLOG) 100 UNIT/ML VIAL SQ SCH ×4 (06:37→21:02)
[2022-02-03 08:00] LABS: ALT 22 U/L (4-34); AST 27 U/L (14-36); African American GFR (CKD) >90 (>60 ml/min/1.73 sqM); Albumin 3.6 g/dL (3.5-5.0); Alkaline Phosphatase 53 U/L (38-126); Anion Gap 5 mmol/L; Blood Urea Nitrogen 12 mg/dL (7-17); Calcium 8.8 mg/dL (8.4-10.2); Carbon Dioxide 25 mmol/L (22-30); Chloride 109 mmol/L (98-107); Glucose 160 mg/dL (74-99); Non-African American GFR(CKD) 87 (>60 ml/min/1.73 sqM); Potassium 4.3 mmol/L (3.5-5.1); Sodium 139 mmol/L (137-145); Total Bilirubin 0.7 mg/dL (0.2-1.3); Total Protein 6.2 g/dL (6.3-8.2)
[2022-02-03 08:02] LABS: Basophils % (A) 1 %; Eosinophils # (A) 0.1 k/uL (0-0.7); Eosinophils % (A) 1 %; HCT 45.5 % (34.0-46.0); HGB 15.5 gm/dL (11.4-16.0); Lymphocytes # (A) 1.8 k/uL (1.0-4.8); Lymphocytes % (A) 26 %; MCH 33.4 pg (25.0-35.0); MCV 98.3 fL (80.0-100.0); Mean Platelet Volume 7.7; Monocytes # (A) 0.4 k/uL (0-1.0); Monocytes % (A) 6 %; Neutrophils # (A) 4.5 k/uL (1.3-7.7); Neutrophils % (A) 65 %; Platelet Count 288 k/uL (150-450); RBC 4.63 m/uL (3.80-5.40); RDW 12.1 % (11.5-15.5); WBC 6.9 k/uL (3.8-10.6)
[2022-02-03] MEDS: amLODIPine 10 MG TAB PO SCH (08:07)
[2022-02-03] MEDS: THYROID, PORK 30 MG TAB PO SCH (08:07)
[2022-02-03] MEDS: ASPIRIN 325 MG TAB PO SCH (08:07)
[2022-02-03] MEDS: LOSARTAN 25 MG TAB PO SCH (08:07)
[2022-02-03] MEDS: CLOPIDOGREL 75 MG TAB PO SCH (08:07)
[2022-02-03] MEDS: ENOXAPARIN 40 MG/0.4 ML SYRINGE SQ SCH (08:08)
[2022-02-03] MEDS: SODIUM CHLORIDE 0.9% 1,000 ML IV SCH (09:02)
--- NOTE | 2022-02-03 10:08 | P.PN ---
Subjective Progress Note Date: 02/03/22 Principal diagnosis: Hypertension The patient is a pleasant 76-year-old female patient with hypertension and history of CVA as well as underlying dementia was admitted to the hospital with worsening change in mental status as well as uncontrolled blood pressure. She was seen this morning. She seems to be asymptomatic from the cardiac vascular standpoint overview. She seems to be hemodynamically stable and the pressure is under better control. She reports no pain in the chest or shortness of breath at this point. She continues to be slightly confused. She underwent an echo in the hospital and that revealed normal left ventricle systolic function with mild mitral and tricuspid regurgitation. Objective - Vital Signs Vital signs: Vital Signs Temp 98.2 F 02/03/22 07:00 Pulse 88 02/03/22 07:00 Resp 18 02/03/22 07:37 BP 136/72 02/03/22 07:00 Pulse Ox 97 02/03/22 07:00 Intake & Output 02/02/22 02/03/22 02/03/22 18:59 06:59 18:59 Intake Total 1405 10 260 Balance 1405 10 260 Intake: IV 900 10 Sodium Chloride 0.9% 1, 900 10 000 ml @ 75 mls/hr IV . [id number] [facility] Rx#:[id number] Oral 505 260 Other: Voiding Method Toilet Toilet # Voids 1 - Constitutional General appearance: Present: no acute distress - Respiratory Respiratory: bilateral: CTA - Cardiovascular Rhythm: regular Heart sounds: normal: S1, S2 Abnormal Heart Sounds: Present: systolic murmur - Labs CBC & Chem 7: 02/03/22 07:00 02/03/22 07:00 Labs: Abnormal Lab Results - Last 24 Hours (Table) 02/02/22 02/02/22 02/02/22 Range/Units 11:21 16:59 19:55 Chloride (98-107) mmol/L Glucose (74-99) mg/dL POC Glucose (mg/dL) 131 H 168 H 232 H (75-99) mg/dL Total Protein (6.3-8.2) g/dL 02/03/22 02/03/22 Range/Units 06:21 07:00 Chloride 109 H (98-107) mmol/L Glucose 160 H (74-99) mg/dL POC Glucose (mg/dL) 159 H (75-99) mg/dL Total Protein 6.2 L (6.3-8.2) g/dL Assessment and Plan Assessment: Assessment #1 recurrent CVA #2 hypertension #3 underlying dementia Plan #1 continue the current medical regimen #2 no need for any further cardiac workup at this point #3 continue monitor the blood pressure #4 possible discharge in the next 24 hours
[2022-02-03 12:14] LABS: Glucose,Whole Blood 162 mg/dL (75-99)
--- NOTE | 2022-02-03 12:45 | P.PN ---
Subjective Progress Note Date: 02/03/22 I am seeing the patient for the first time for neurological management during this admission. Please refer to Dr. Burgess's notes for further detailed. The patient is accompanied by her children and who are at bedside. Per her family members the patient has short term memory loss for at least 4 years (and notified nurse for 7 years) but worsened over the past one week. She is in the process of seeing Dr. Luis for neurological evaluation for her dementia. Per family members she is non-compliant of taking her medication (including hypertension and rest). She would take Ibuprofen PRN. Per family members seems that the patient the was notified that she has dementia in the past. She is not on any antiplatelets or statins at home per family members. Objective - Vital Signs Vital signs: Vital Signs Temp 98.2 F 02/03/22 07:00 Pulse 88 02/03/22 07:00 Resp 18 02/03/22 07:37 BP 136/72 02/03/22 07:00 Pulse Ox 97 02/03/22 07:00 Intake & Output 02/02/22 02/03/22 02/03/22 18:59 06:59 18:59 Intake Total 1405 10 260 Balance 1405 10 260 Intake: IV 900 10 Sodium Chloride 0.9% 1, 900 10 000 ml @ 75 mls/hr IV . [id number] [facility] Rx#:[id number] Oral 505 260 Other: Voiding Method Toilet Toilet # Voids 1 - Exam GENERAL: The patient is lying in bed and is not in acute distress. NEUROLOGICAL: Higher mental function: The patient is awake, alert, oriented to self. She stated she was in the hospital but did not know name. She could not tell me the year or month. She is able to name objects correctly (pen, watch, glasses). Patient is following simple commands. No aphasia and no neglect. Cranial nerves: The pupils are round, equal and reactive to light and accommodation. Visual hull are full to confrontation throughout. Extraocular movement is intact no nystagmus is noted. Facial sensation is normal to touch throughout. The facial strength is subtle right nasolabial flattening. Hearing is normal bilaterally to hand rub. Tongue is midline and moved [id number] without any difficulty. No dysarthria is noted. Shoulder shrug is normal bilaterally. Motor: The strength is 5 over 5 throughout. Normal tone and bulk. Cerebellum: Normal finger to nose bilaterally. Sensation: Sensation is normal to touch throughout. WORK-UP: Lipid panel is triglyceride 54, cholesterol is 138, LDL 57 and HDL is 69. Hemoglobin A1c is 8.7. In November 2021 her hemoglobin A1c is 11.5 and 2017 and prior was within normal limits. TSH is 2.440 and the free T4 is 0.79 she had a TSH done in 12/11/2021 CT scan of the brain performed in the emergency department reveals evidence of a subacute infarct involving the anterior limb of the internal capsule and lane radiata (side not indicated per report). On my review of the imaging the infarct is noted on the left side of the brain. I agree with Dr. Burgess and I feel it is more subacute to chronic. Carotid duplex was reported as less than 50% stenosis of bilateral carotid. 2-D echo was reported as borderline concentric left ventricular hypertrophy. Ejection fraction of 55-60%. Intra-arterial an intraventricular septum is intact. - Labs CBC & Chem 7: 02/03/22 07:00 02/03/22 07:00 Labs: Abnormal Lab Results - Last 24 Hours (Table) 02/02/22 02/02/22 02/03/22 Range/Units 16:59 19:55 06:21 Chloride (98-107) mmol/L Glucose (74-99) mg/dL POC Glucose (mg/dL) 168 H 232 H 159 H (75-99) mg/dL Total Protein (6.3-8.2) g/dL 02/03/22 02/03/22 Range/Units 07:00 12:12 Chloride 109 H (98-107) mmol/L Glucose 160 H (74-99) mg/dL POC Glucose (mg/dL) 162 H (75-99) mg/dL Total Protein 6.2 L (6.3-8.2) g/dL Assessment and Plan Assessment: 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 The patient has very subtle findings on examination, consistent with this infarct: Slight flattening of the right nasolabial fold. Stroke seems due to small vessel disease (because of her risk factors: DM, age, sex, HTN and noncompliant with medication). History of dementia (per family for past 4-7 years and worsened for past one week). Rule out vascular especially because of her risk factors and patient is non-compliant taking her home medication. Diabetes mellitus and most recent is 8.7 Hypertension History of thyroid disease Medication noncompliance Plan: I started the patient on aspirin 81 mg and Plavix 75 mg daily. The patient to be on dual antiplatelets for 21 days and after 21 days stop Plavix but continue aspirin indefinitely. Continue Lipitor 20 g daily at bedtime for secondary stroke prophylaxis. I ordered vitamin B12, folate, routine EEG to rule out any pseudodementia. She had a recent TSH on November 2021 and from a neurologic perspective and repeat TSH is not warranted. Continue neuro checks PT, OT and [facility] is consulted Recommend neuropsych evaluation and further evaluation of her dementia as an outpatient with Dr. Luis. For now MRI of the brain is not warranted since the the subacute to chronic stroke seen on the CAT scan and it will not change over. I'll defer I getting MRI of the brain as an outpatient if Dr. Luis feels its warranted. We'll defer the rest of the medical management to the primary team Patient was notified to take her medication on a daily basis. Upon discharge patient to follow-up with Dr. Luis within 1-2 weeks. Besides above investigation no further work-up is needed. The plan was discussed with the patient as well as her family members ( and children). Boy Roberto M.D. Neuro-hospitalist Time with Patient: Less than 30
--- NOTE | 2022-02-03 15:47 | EEG ---
ELECTROENCEPHALOGRAM REPORT DATE OF SERVICE: 02/03/2022 CLINICAL HISTORY: This is a 76-year-old woman with reported memory loss for at least 4 years per family members, but worsening over the last one week. The video EEG is obtained to evaluate for seizure epileptiform activity. RELEVANT MEDICATION: The patient is not on any antiepileptic drug. EEG TYPE: A routine 21-channel EEG is performed with video using the 10/20 electrode placement system. DESCRIPTION: Only wakefulness is obtained. During awake state, the posterior-dominant rhythm consists of low to moderate voltage of 8.5 to 9 hertz activity that is well modulated and well sustained. There is no physiological sleep architecture seen. There is no focal slowing. Interictal and ictal is none. ACTIVATION PROCEDURE: Photic stimulation did evoke a posterior driving response at multiple low flash frequencies. There is no abnormality during the photic stimulation. Hyperventilation is not performed. CLINICAL INTERPRETATION: This is a normal routine EEG. There is no focal slowing, epileptiform discharge or seizure on the EEG. Clinical correlation is recommended. MMABHISHEK / RADHAN: [id number] / ALEXANDER
[2022-02-03 16:15] LABS: Glucose,Whole Blood 239 mg/dL (75-99)
--- NOTE | 2022-02-03 17:53 | P.PN ---
Subjective Progress Note Date: 02/03/22 Janene Ponce, is a 76-year-old [facility] emergency room with a chief complaint of worsening confusion, patient has a known history of dementia for several years, however her mental status has declined significantly over the last 2 weeks per caregiver. She was evaluated in the emergency room vital examination on presentation revealed a temperature of 98.8 pulse 119 respiration 20 blood pressure 154/78 pulse ox 94% on room air Laboratory data revealed a white blood count of 9.4 hemoglobin 16.3 platelet count 305 sodium 138 potassium 3.9 chloride 108 CO2 19 BUN 11 creatinine 0.65, u rine analysis was normal. Testing in the emergency room revealed EKG done in the emergency room revealed evidence of sinus tachycardia and bilateral atrial enlargement, computed tomography scan of the brain revealed evidence of subacute infarct along the anterior limb of the internal capsule and underlying chronic small vessel ischemic changes. Chest x-ray done in the emergency room revealed no evidence for acute pulmonary disease. Patient was admitted to medical floor for further evaluation and treatment, echocardiogram and carotid Doppler were ordered cardiology consultation and neurology consultation was requested. Past medical history is significant for history of hypertension, history of biy-uftnzby-cnydizszq diabetes mellitus, history of hypothyroidism, and underlying history of dementia On review of systems patient is alert confused in no apparent distress she does not know why she is in the hospital she is denying any symptoms at this time there is no fever or chills no headache or dizziness no chest pain no shortness of breath no cough no nausea or vomiting no abdominal pain no diarrhea and no urinary symptoms, patient denies any weakness or numbness in any of her extremi ties she denies any change in her vision speech or gait. On 02/02/2022 patient is alert and oriented resting comfortably in bed. Carotid Doppler negative. Sinus rhythm with an EF of 55-60%. Current vitals temp 97.9, heart rate 89, respiratory rate 14, blood pressure 160/71 with also has a 98% on room air. Patient denies chest pain or shortness breath. Patient denies nausea vomiting or diarrhea. Patient denies any urinary burning or frequency On 02/03/2022 patient was seen and examined on the telemetry floor patient is alert and oriented resting comfortably in bed. Carotid Doppler negative. Sinus rhythm with an EF of 55-60%. Current vitals temp 97.9, heart rate 89, respiratory rate 14, blood pressure 160/71 with also has a 98% on room air. Patient denies chest pain or shortness breath. Patient denies nausea vomiting or diarrhea and no urinary symptoms, patient is improving possible discharge to home tomorrow. Objective - Vital Signs Vital signs: Vital Signs Temp 97.6 F 02/03/22 15:32 Pulse 92 02/03/22 15:32 Resp 18 02/03/22 15:32 BP 167/89 02/03/22 15:32 Pulse Ox 98 02/03/22 15:32 Intake & Output 02/02/22 02/03/22 02/03/22 18:59 06:59 18:59 Intake Total 1405 10 1120 Balance 1405 10 1120 Intake: IV 900 10 Sodium Chloride 0.9% 1, 900 10 000 ml @ 75 mls/hr IV . [id number] [facility] Rx#:[id number] Oral 505 1120 Other: Voiding Method Toilet Toilet # Voids 1 2 - Exam In general patient is alert, confused, in no distress HEENT head normocephalic and atraumatic Neck is supple no JVD no goiter no lymphadenopathy no carotid bruit Chest examination is clear to auscultation no crackles no wheezing Cardiac exam reveals regular heart sounds S1 and S2 no gallops no murmurs Abdomen is soft nontender no organomegaly with normal bowel sounds Extremity exam reveals no edema no cyanosis or clubbing Neurological examination reveals no gross focal deficits - Labs CBC & Chem 7: 02/03/22 07:00 02/03/22 07:00 Labs: Abnormal Lab Results - Last 24 Hours (Table) 02/02/22 02/02/22 02/03/22 Range/Units 16:59 19:55 06:21 Chloride (98-107) mmol/L Glucose (74-99) mg/dL POC Glucose (mg/dL) 168 H 232 H 159 H (75-99) mg/dL Total Protein (6.3-8.2) g/dL 02/03/22 02/03/22 02/03/22 Range/Units 07:00 12:12 16:13 Chloride 109 H (98-107) mmol/L Glucose 160 H (74-99) mg/dL POC Glucose (mg/dL) 162 H 239 H (75-99) mg/dL Total Protein 6.2 L (6.3-8.2) g/dL Assessment and Plan Plan: Worsening mental status over the last 2 weeks Evidence of subacute infarct on computed tomography scan of the brain Hypertension with elevated blood pressure on presentation at 189/111 apparently patient used to be on blood pressure medications in the past however she stopped taking them Underlying history of ygp-rrnthhm-rbaesnhqa diabetes mellitus Underlying history of hypothyroidism At this time patient is admitted to telemetry floor Cardiology consultation and neurology consultation was requested Patient was started on Norvasc 5 mg by mouth daily For DVT prophylaxis Will start Lovenox 40 mg subcu daily For GI prophylaxis Protonix 40 mg by mouth daily Physical therapy and occupational therapy consult requested Will follow
[2022-02-03 19:54] LABS: Glucose,Whole Blood 135 mg/dL (75-99)
[2022-02-03 20:56] LABS: Folate, Serum >20.00 ng/mL (4.40-31.00)
[2022-02-03] MEDS ORDERED: ATORVASTATIN 20 MG TAB PO SCH (21:00)
[2022-02-04 06:03] LABS: Glucose,Whole Blood 144 mg/dL (75-99)
[2022-02-04] MEDS: PANTOPRAZOLE 40 MG TABLET PO SCH (06:55)
[2022-02-04] MEDS: INSULIN ASPART (NovoLOG) 100 UNIT/ML VIAL SQ SCH ×3 (06:56→17:34)
[2022-02-04] MEDS: THYROID, PORK 30 MG TAB PO SCH (08:13)
[2022-02-04] MEDS: ENOXAPARIN 40 MG/0.4 ML SYRINGE SQ SCH (08:13)
[2022-02-04] MEDS: LOSARTAN 25 MG TAB PO SCH (08:13)
[2022-02-04] MEDS: CLOPIDOGREL 75 MG TAB PO SCH (08:13)
[2022-02-04] MEDS: amLODIPine 10 MG TAB PO SCH (08:13)
[2022-02-04 08:18] LABS: Basophils % (A) 1 %; Eosinophils # (A) 0.1 k/uL (0-0.7); Eosinophils % (A) 1 %; HCT 46.4 % (34.0-46.0); HGB 15.8 gm/dL (11.4-16.0); Lymphocytes # (A) 1.7 k/uL (1.0-4.8); Lymphocytes % (A) 24 %; MCH 33.6 pg (25.0-35.0); MCV 98.6 fL (80.0-100.0); Mean Platelet Volume 8.4; Monocytes # (A) 0.5 k/uL (0-1.0); Monocytes % (A) 8 %; Neutrophils # (A) 4.5 k/uL (1.3-7.7); Neutrophils % (A) 66 %; Platelet Count 285 k/uL (150-450); RBC 4.71 m/uL (3.80-5.40); RDW 12.2 % (11.5-15.5); WBC 6.9 k/uL (3.8-10.6)
[2022-02-04 08:34] LABS: ALT 23 U/L (4-34); AST 28 U/L (14-36); African American GFR (CKD) >90 (>60 ml/min/1.73 sqM); Alkaline Phosphatase 51 U/L (38-126); Anion Gap 7 mmol/L; Blood Urea Nitrogen 12 mg/dL (7-17); Calcium 9.1 mg/dL (8.4-10.2); Carbon Dioxide 24 mmol/L (22-30); Chloride 108 mmol/L (98-107); Glucose 153 mg/dL (74-99); Non-African American GFR(CKD) 88 (>60 ml/min/1.73 sqM); Potassium 4.4 mmol/L (3.5-5.1); Sodium 139 mmol/L (137-145); Total Bilirubin 0.9 mg/dL (0.2-1.3); Total Protein 6.9 g/dL (6.3-8.2)
[2022-02-04] MEDS ORDERED: ASPIRIN 81 MG PO SCH (09:00)
[2022-02-04 11:19] LABS: Glucose,Whole Blood 161 mg/dL (75-99)
--- NOTE | 2022-02-04 11:39 | P.PN ---
Subjective Progress Note Date: 02/04/22 The patient is seen at bedside and states she is doing well. She denies of any weakness, numbness, headache. Objective - Vital Signs Vital signs: Vital Signs Temp 97.6 F 02/04/22 08:00 Pulse 86 02/04/22 11:27 Resp 16 02/04/22 11:27 BP 149/76 02/04/22 11:27 Pulse Ox 96 02/04/22 11:27 Intake & Output 02/03/22 02/04/22 02/04/22 18:59 06:59 18:59 Intake Total 1380 10 120 Balance 1380 10 120 Intake: Intake, IV Titration 10 Amount Sodium Chloride 0.9% 1, 10 000 ml @ 75 mls/hr IV . [id number] [facility] Rx#:[id number] Oral 1380 120 Other: Voiding Method Toilet Toilet # Voids 2 1 - Exam GENERAL: The patient is lying in bed and is not in acute distress. NEUROLOGICAL: Higher mental function: The patient is awake, alert, oriented to self. She stated she was in the hospital but did not know name. She could not tell me the year or month. She is able to name objects correctly (pen, watch, glasses). Patient is following simple commands. No aphasia and no neglect. Cranial nerves: The pupils are round, equal and reactive to light and accommodation. Visual hull are full to confrontation throughout. Extraocular movement is intact no nystagmus is noted. Facial sensation is normal to touch throughout. The facial strength is subtle right nasolabial flattening. Hearing is normal bilaterally to hand rub. Tongue is midline and moved [id number] without any difficulty. No dysarthria is noted. Shoulder shrug is normal bilaterally. Motor: The strength is 5 over 5 throughout. Normal tone and bulk. Cerebellum: Normal finger to nose bilaterally. Sensation: Sensation is normal to touch throughout. WORK-UP: Lipid panel is triglyceride 54, cholesterol is 138, LDL 57 and HDL is 69. Hemoglobin A1c is 8.7. In November 2021 her hemoglobin A1c is 11.5 and 2017 and prior was within normal limits. TSH is 2.210. Vitamin B12 level is 807 Serum folate is more than 20 CT scan of the brain performed in the emergency department reveals evidence of a subacute infarct involving the anterior limb of the internal capsule and lane radiata (side not indicated per report). On my review of the imaging the infarct is noted on the left side of the brain. I agree with Dr. Burgess and I feel it is more subacute to chronic. Carotid duplex was reported as less than 50% stenosis of bilateral carotid. 2-D echo was reported as borderline concentric left ventricular hypertrophy. Ejection fraction of 55-60%. Intra-arterial an intraventricular septum is intact. Routine EEG on 02/03/2022: Is normal. There is no focal slowing, epileptiform discharges or seizure on the EEG. - Labs CBC & Chem 7: 02/04/22 07:02 02/04/22 07:02 Labs: Abnormal Lab Results - Last 24 Hours (Table) 02/03/22 02/03/22 02/03/22 Range/Units 12:12 16:13 19:52 Hct (34.0-46.0) % Chloride (98-107) mmol/L Glucose (74-99) mg/dL POC Glucose (mg/dL) 162 H 239 H 135 H (75-99) mg/dL 02/04/22 02/04/22 02/04/22 Range/Units 06:02 07:02 07:02 Hct 46.4 H (34.0-46.0) % Chloride 108 H (98-107) mmol/L Glucose 153 H (74-99) mg/dL POC Glucose (mg/dL) 144 H (75-99) mg/dL 02/04/22 Range/Units 11:17 Hct (34.0-46.0) % Chloride (98-107) mmol/L Glucose (74-99) mg/dL POC Glucose (mg/dL) 161 H (75-99) mg/dL Assessment and Plan Assessment: 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 The patient has very subtle findings on examination, consistent with this infarct: Slight flattening of the right nasolabial fold. Stroke seems due to small vessel disease (because of her risk factors: DM, age, sex, HTN and noncompliant with medication). History of dementia (per family for past 4-7 years and worsened for past one week). Possibly vascular dementia especially because of her risk factors and patient is non-compliant taking her home medication. Diabetes mellitus and most recent is 8.7 Hypertension History of thyroid disease Medication noncompliance Plan: Continue aspirin 81 mg and Plavix 75 mg daily. The patient to be on dual ant iplatelets for 21 days and after 21 days stop Plavix but continue aspirin indefinitely. Continue Lipitor 20mg daily at bedtime for secondary stroke prophylaxis. Continue neuro checks PT, OT and SUEDING MACHINE OPERATOR is consulted Recommend neuropsych evaluation and further evaluation of her dementia as an outpatient with Dr. Luis. For now MRI of the brain is not warranted since the the subacute to chronic stroke seen on the CAT scan and it will not pack changer. I'll defer I getting MRI of the brain as an outpatient if Dr. Luis feels its warranted. We'll defer the rest of the medical management to the primary team Patient was notified to take her medication on a daily basis. Upon discharge patient to follow-up with Dr. Luis within 1-2 weeks. The plan is discussed with patient and her nurse. There is no further neurological work-up and patient is clear from neurological perspective. The same plan was discussed with her family members on 02/03/2022. Boy Roberto M.D. Neuro-hospitalist Time with Patient: Less than 30
[2022-02-04 17:16] LABS: Glucose,Whole Blood 224 mg/dL (75-99)
--- NOTE | 2022-02-04 17:45 | P.DS ---
Providers Date of admission: 01/31/22 15:53 Expected date of discharge: 02/04/22 Attending physician: Asiya Trejo Consults: 01/31/22 15:53 Consult Physician Routine Consulting Provider: Asiya Trejo Consult Reason/Comments: CVA Do you want consulting provider notified?: Yes 02/01/22 09:50 Consult Physician Routine Consulting Provider: Ramon Sanchez Consult Reason/Comments: subacute stroke Do you want consulting provider notified?: Yes Consult Physician Routine Consulting Provider: Alina Faulkner Consult Reason/Comments: subacute stroke Do you want consulting provider notified?: Yes Primary care physician: Tara Cook Hospital Course: Diagnosis on discharge: Worsening mental status over the last 2 weeks Evidence of subacute infarct on computed tomography scan of the brain Hypertension with elevated blood pressure on presentation at 189/111 apparently patient used to be on blood pressure medications in the past however she stopped taking them Underlying history of pjk-ipxcqqd-cemwqjtsy diabetes mellitus Underlying history of hypothyroidism Hospital Course: Janene Ponce, is a 76-year-old [facility] emergency room with a chief complaint of worsening confusion, patient has a known history of dementia for several years, however her mental status has declined significantly over the last 2 weeks per caregiver. She was evaluated in the emergency room vital examination on presentation revealed a temperature of 98.8 pulse 119 respiration 20 blood pressure 154/78 pulse ox 94% on room air Laboratory data revealed a white blood count of 9.4 hemoglobin 16.3 platelet count 305 sodium 138 potassium 3.9 chloride 108 CO2 19 BUN 11 creatinine 0.65, urine analysis was normal. Testing in the emergency room revealed EKG done in the emergency room revealed evidence of sinus tachycardia and bilateral atrial enlargement, computed tomography scan of the brain revealed evidence of subacute infarct along the anterior limb of the internal capsule and underlying chronic small vessel ischemic changes. Chest x-ray done in the emergency room revealed no evidence for acute pulmonary disease. Patient was admitted to medical floor for further evaluation and treatment, echocardiogram and carotid Doppler were ordered cardiology consultation and neurology consultation was requested. Past medical history is significant for history of hypertension, history of gpc-xtkusxf-fprddpyvq diabetes mellitus, history of hypothyroidism, and underlying history of dementia On review of systems patient is alert confused in no apparent distress she does not know why she is in the hospital she is denying any symptoms at this time there is no fever or chills no headache or dizziness no chest pain no shortness of breath no cough no nausea or vomiting no abdominal pain no diarrhea and no urinary symptoms, patient denies any weakness or numbness in any of her extremities she denies any change in her vision speech or gait. On 02/02/2022 patient is alert and oriented resting comfortably in bed. Carotid Doppler negative. Sinus rhythm with an EF of 55-60%. Current vitals temp 97.9, heart rate 89, respiratory rate 14, blood pressure 160/71 with also has a 98% on room air. Patient denies chest pain or shortness breath. Patient denies nausea vomiting or diarrhea. Patient denies any urinary burning or frequency On 02/03/2022 patient was seen and examined on the telemetry floor patient is alert and oriented resting comfortably in bed. Carotid Doppler negative. Sinus rhythm with an EF of 55-60%. Current vitals temp 97.9, heart rate 89, respiratory rate 14, blood pressure 160/71 with also has a 98% on room air. Patient denies chest pain or shortness breath. Patient denies nausea vomiting or diarrhea and no urinary symptoms, patient is improving possible discharge to home tomorrow. On 02/04/2022 patient is stable she is alert and oriented 3 in no apparent distress she was evaluated by neurology and was cleared for discharge, during this admission patient was started on aspirin 81 mg by mouth daily, losartan 25 mg by mouth daily, Lipitor 20 mg by mouth daily, Plavix 75 mg by mouth daily, Norvasc 10 mg by mouth daily, and proton X 40 mg by mouth daily. Patient should follow-up with her primary care physician within one week she should also follow with neurology in 1-2 weeks Patient Condition at Discharge: Stable Plan - Discharge Summary Discharge Rx Participant: No New Discharge Prescriptions: New Aspirin 81 mg PO DAILY Losartan [Cozaar] 25 mg PO DAILY tab Atorvastatin [Lipitor] 20 mg PO HS tab Clopidogrel [Plavix] 75 mg PO DAILY tab Pantoprazole [Protonix] 40 mg PO AC-BRKFST tab amLODIPine [Norvasc] 10 mg PO DAILY tab Continue Thyroid,Pork [Pinola Thyroid] 60 mg PO DAILY glyBURIDE/METFORMIN HCL [glyBURIDE/METFORMIN HCL 5-500 mg] 2 tab PO DAILY Discharge Medication List Thyroid,Pork [Pinola Thyroid] 60 mg PO DAILY 01/31/22 [History] glyBURIDE/METFORMIN HCL [glyBURIDE/METFORMIN HCL 5-500 mg] 2 tab PO DAILY 01/31/22 [History] Aspirin 81 mg PO DAILY 02/04/22 [Rx] Atorvastatin [Lipitor] 20 mg PO HS tab 02/04/22 [Rx] Clopidogrel [Plavix] 75 mg PO DAILY tab 02/04/22 [Rx] Losartan [Cozaar] 25 mg PO DAILY tab 02/04/22 [Rx] Pantoprazole [Protonix] 40 mg PO AC-BRKFST tab 02/04/22 [Rx] amLODIPine [Norvasc] 10 mg PO DAILY tab 02/04/22 [Rx] Follow up Appointment(s)/Referral(s): Tara Cook MD [Primary Care Provider] - 02/12/22 8:30 am Jeremy Luis DO [STAFF PHYSICIAN] - 10 Days (office closed, message left with them to schedule appointment with you. ) Patient Instructions/Handouts: Ischemic Stroke (DC) Activity/Diet/Wound Care/Special Instructions: take medications as ordered.
[2022-02-04 17:54] VITALS: BP 145/74; PULSE 80; RESP 17; TEMP 98
--- NOTE | 2022-02-05 11:10 | ECHOF ---
Referral Reason:rule out PFO MEASUREMENTS -------- HEIGHT: 129.5 cm WEIGHT: 59.0 kg BP: FINDINGS -------- Limited Study Contrast study was performed with 2 iv injections of 8 ccs of agitated normal saline, at rest, and wi th cough. Bubble study to rule out shunt. Unable to rule out due to poor images. CONCLUSIONS -------- 1. Contrast study was performed with 2 iv injections of 8 ccs of agitated normal saline, at rest, and with cough. 2. Bubble study to rule out shunt. Unable to rule out due to poor images. MANAGER GROUP HOME: Belkys [address]
== END 2022-02-04 17:54 | disposition home or self-care (01) | DRG 66 ==
LOC: EC 13:41 → 3SCARD 15:53
PROVIDERS: ADMIT Internal Medicine; ATTEND Internal Medicine
DX: I63.89 Other cerebral infarction (principal); I10 Essential (primary) hypertension; E03.9 Hypothyroidism, unspecified; F03.90 Unspecified dementia, unspecified severity, without behavioral disturbance, psychotic disturbance, mood disturbance, and anxiety; E11.51 Type 2 diabetes mellitus with diabetic peripheral angiopathy without gangrene; I35.1 Nonrheumatic aortic (valve) insufficiency; Z79.82 Long term (current) use of aspirin; Z79.899 Other long term (current) drug therapy; Z86.73 Personal history of transient ischemic attack (TIA), and cerebral infarction without residual deficits; Z91.14 Patient's other noncompliance with medication regimen; Z88.0 Allergy status to penicillin; Z79.890 Hormone replacement therapy
CPT/HCPCS: 36415; 70450; 71046; 80053; 80061; 81003; 82607; 82746; 83036; 84443; 85025; 85610; 85730; 93005; 93306; 93308; 93880; 94760; 95816; 99285

== ENCOUNTER 2023-05-22 05:07 | Inpatient (IN) | payer MEDICARE ==
[2023-05-22] MEDS ORDERED: SODIUM CHLORIDE 0.9% 1,000 ML IV STA (05:17)
[2023-05-22] MEDS ORDERED: MORPHINE SULFATE 4 MG/ML SYRINGE IV STA (05:17)
[2023-05-22] MEDS ORDERED: LORazepam 2 MG/ML INJ IV STA (05:25)
[2023-05-22 06:13] LABS: Basophils % (A) 0 %; Eosinophils # (A) 0.1 k/uL (0-0.7); Eosinophils % (A) 1 %; HCT 33.3 % (34.0-46.0); HGB 10.6 gm/dL (11.4-16.0); Hypochromasia Moderate; Lymphocytes % (A) 10 %; MCH 26.7 pg (25.0-35.0); MCHC 31.8 g/dL (31.0-37.0); MCV 83.9 fL (80.0-100.0); Mean Platelet Volume 7.7; Monocytes # (A) 0.5 k/uL (0-1.0); Monocytes % (A) 5 %; Neutrophils # (A) 8.6 k/uL (1.3-7.7); Neutrophils % (A) 84 %; Platelet Count 378 k/uL (150-450); RBC 3.97 m/uL (3.80-5.40); RDW 13.1 % (11.5-15.5); WBC 10.2 k/uL (3.8-10.6)
[2023-05-22 06:14] LABS: ALT 18 U/L (4-34); AST 24 U/L (14-36); African American GFR (CKD) >90 (>60 ml/min/1.73 sqM); Albumin 3.9 g/dL (3.5-5.0); Alkaline Phosphatase 82 U/L (38-126); Anion Gap 9 mmol/L; Blood Urea Nitrogen 12 mg/dL (7-17); Calcium 8.5 mg/dL (8.4-10.2); Carbon Dioxide 21 mmol/L (22-30); Chloride 110 mmol/L (98-107); Glucose 148 mg/dL (74-99); Magnesium 1.9 mg/dL (1.6-2.3); Non-African American GFR(CKD) >90 (>60 ml/min/1.73 sqM); Phosphorus 2.5 mg/dL (2.5-4.5); Potassium 3.7 mmol/L (3.5-5.1); Sodium 140 mmol/L (137-145); Total Bilirubin 0.6 mg/dL (0.2-1.3); Total Protein 6.3 g/dL (6.3-8.2)
[2023-05-22] MEDS ORDERED: HYDROmorphone 1 MG/ML 1 ML SYRINGE IVP STA (06:24)
[2023-05-22 06:26] LABS: Prothrombin Time 10.6 sec (9.0-12.0)
[2023-05-22 06:33] LABS: Partial Thromboplastin Time 19.3 sec (22.0-30.0)
[2023-05-22] MEDS ORDERED: NALOXONE 0.4 MG/ML 1 ML VIAL IV PRN ×2 (06:55→16:06)
[2023-05-22] MEDS ORDERED: ONDANSETRON 4 MG/2 ML VIAL IVP PRN ×2 (06:55→16:06)
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
[2023-05-22] MEDS: SODIUM CHLORIDE 0.9% 1,000 ML IV SCH ×2 (08:26→20:10)
[2023-05-22] MEDS ORDERED: LORazepam 2 MG/ML INJ IV ONE (08:30)
--- NOTE | 2023-05-22 08:36 | XR ---
Janene Dave EXAMINATION TYPE: XR chest 1V DATE OF EXAM: 05/22/2023 CLINICAL HISTORY: Fall injury and chest pain. TECHNIQUE: Single AP portable supine view of the chest is obtained. COMPARISON: Chest x-ray from January 31, 2022 FINDINGS: There is no suspicious new focal airspace opacity, pleural effusion, or pneumothorax seen bilaterally. Cardiac silhouette size remains upper limits of normal. Osseous structures are intact. O verlying EKG leads are now seen. IMPRESSION: No acute process.
--- NOTE | 2023-05-22 08:36 | XR ---
Janene Dave EXAMINATION TYPE: XR Hip Bilateral and AP pelvis DATE OF EXAM: 05/22/2023 COMPARISON: NONE HISTORY: Pain after fall injury. TECHNIQUE: A single AP view of the pelvis is obtained. Two views of the left hip are obtained. FINDINGS: There is acute comminuted displaced intertrochanteric fracture of the left proximal femur. There is no left hip joint dislocation. Remainder of the pelvis shows no additional acute fracture or dislocation. Pubic symphysis is intact. Sacroiliac joints are preserved. IMPRESSION: As above.
[2023-05-22] MEDS: HYDROmorphone 1 MG/ML 1 ML SYRINGE IVP PRN ×2 (09:50→20:04)
--- NOTE | 2023-05-22 10:55 | P.HPOR ---
History of Present Illness H&P Date: 05/22/23 This is a 78-year-old female who is admitted for left hip fracture. Patient is seen and evaluated in the emergency room today. Patient is pleasantly confused and her is present in the room today. The patient's states that Janene lives at home with him. Patient's states that he heard a loud noise around 3 in the morning today and found that Janene had fallen trying to get out of bed. Patient does complain of left leg pain. Patient has a history of stroke and takes aspirin daily. Patient's past medical history is significant for diabetes mellitus, hypertension and thyroid disorder. Patient denies any fever/chills, headache, nausea, abdominal pain, numbness, weakness or tingling. Review of Systems See HPI. Past Medical History Past Medical History: Diabetes Mellitus, Hypertension, Thyroid Disorder History of Any Multi-Drug Resistant Organisms: None Reported Past Surgical History: No Surgical Hx Reported Past Anesthesia/Blood Transfusion Reactions: Unable to Obtain Past Psychological History: No Psychological Hx Reported Smoking Status: Never smoker Past Alcohol Use History: None Reported Past Drug Use History: None Reported Medications and Allergies Home Medications Medication Instructions Recorded Confirmed Type Thyroid,Pork [[place] Thyroid] 60 mg PO DAILY 01/31/22 05/22/23 History Aspirin 81 mg PO DAILY 02/04/22 05/22/23 Rx Atorvastatin [Lipitor] 20 mg PO HS tab 02/04/22 05/22/23 Rx Pantoprazole [Protonix] 40 mg PO AC-BRKFST tab 02/04/22 05/22/23 Rx amLODIPine [Norvasc] 10 mg PO DAILY tab 02/04/22 05/22/23 Rx Ibuprofen [Motrin Ib] 200 mg PO Q8H PRN 05/22/23 05/22/23 History metFORMIN HCL ER [Glucophage XR] 500 mg PO BID-W/MEALS 05/22/23 05/22/23 History Allergies Allergy/AdvReac Type Severity Reaction Status Date / Time codeine Allergy Unknown - Verified 05/22/23 09:16 Per PCP office hydralazine Allergy Unknown - Verified 05/22/23 09:16 Per PCP office isosorbide [From Imdur] Allergy Unknown - Verified 05/22/23 09:16 Per PCP office losartan [From Cozaar] Allergy Unknown - Verified 05/22/23 09:16 Per PCP office Penicillins Allergy Unknown - Verified 05/22/23 09:16 Per PCP office Sulfa (Sulfonamide Allergy Unknown - Verified 05/22/23 09:16 Antibiotics) Per PCP office Physical Examination On exam patient is lying comfortably in bed in no acute distress. Patient is pleasantly confused. is present at bedside today. The left lower extremity is shortened and externally rotated. Skin is intact to bilateral lower extremities. Calves are soft and nontender to palpation bilaterally. Sensation intact bilaterally. Neurovascular status and circulatory status are intact bilateral upper and lower extremities. Patient freely moves bilateral upper extremities. Head is normocephalic and atraumatic. Results X-rays of the left hip and pelvis show intertrochanteric fracture of the left femur. - Labs Labs: Abnormal Lab Results - Last 24 Hours (Table) 05/22/23 05/22/23 05/22/23 Range/Units 05:49 05:49 05:49 Hgb 10.6 L (11.4-16.0) gm/dL Hct 33.3 L (34.0-46.0) % Neutrophils # 8.6 H (1.3-7.7) k/uL APTT 19.3 L (22.0-30.0) sec Chloride 110 H (98-107) mmol/L Carbon Dioxide 21 L (22-30) mmol/L Glucose 148 H (74-99) mg/dL H & H 05/22/23 Range/Units 05:49 Hgb 10.6 L (11.4-16.0) gm/dL Hct 33.3 L (34.0-46.0) % Coagulation 05/22/23 Range/Units 05:49 INR 1.0 (<1.2) Result Diagrams: 05/22/23 05:49 05/22/23 05:49 Assessment and Plan (1) Closed intertrochanteric fracture of left hip Current Visit: Yes Status: Acute Code(s): S72.142A - DISPLACED INTERTROCHANTERIC FRACTURE OF LEFT FEMUR, INIT SNOMED Code(s): 27605481 (2) Closed left hip fracture Current Visit: Yes Status: Acute Code(s): S72.002A - FRACTURE OF UNSP PART OF NECK OF LEFT FEMUR, INIT SNOMED Code(s): 243169306 (3) Fall Current Visit: Yes Status: Acute Code(s): W19.XXXA - UNSPECIFIED FALL, INITIAL ENCOUNTER SNOMED Code(s): 2960747 Plan: 1. Patient is to be NPO after midnight. 2. Continue pain control. 3. Appreciate input from internal medicine. 4. Planning for closed reduction and intramedullary nailing of the left hip on 05/23/2023 pending medical clearance and patient consent.
--- NOTE | 2023-05-22 14:22 | P.CONS ---
History of Present Illness - Reason for Consult Preoperative clearance - History of Present Illness 72-year-old female admitted for left hip fracture, mechanical fall. EKG did not show any significant abnormality patient does have dementia baseline alert oriented 2. Patient doesn't have any history of coronary artery disease does have history of hypertension and hyperlipidemia and a type 2 diabetes mellitus. Patient denied any chest pain patient had shortness of breath orthopnea or chest x-ray did not show any significant abnormality. REVIEW OF SYSTEMS: CONSTITUTIONAL: No fever, no malaise, no fatigue. HEENT: No recent visual problems or hearing problems. Denied any sore throat. CARDIOVASCULAR: No chest pain, orthopnea, PND, no palpitations, no syncope. PULMONARY: No shortness of breath, no cough, no hemoptysis. GASTROINTESTINAL: No diarrhea, no nausea, no vomiting, no abdominal pain. NEUROLOGICAL: No headaches, no weakness, no numbness. HEMATOLOGICAL: Denies any bleeding or petechiae. GENITOURINARY: Denies any burning micturition, frequency, or urgency. MUSCULOSKELETAL/RHEUMATOLOGICAL: Left hip pain ENDOCRINE: Denies any polyuria or polydipsia. The rest of the 14-point review of systems is negative. PHYSICAL EXAMINATION: GENERAL: The patient is alert and oriented x3, not in any acute distress. Well developed, well nourished. HEENT: Pupils are round and equally reacting to light. EOMI. No scleral icterus. No conjunctival pallor. Normocephalic, atraumatic. No pharyngeal erythema. No thyromegaly. CARDIOVASCULAR: S1 and S2 present. No murmurs, rubs, or gallops. PULMONARY: Chest is clear to auscultation, no wheezing or crackles. ABDOMEN: Soft, nontender, nondistended, normoactive bowel sounds. No palpable organomegaly. MUSCULOSKELETAL: Deferred to orthopedic surgery EXTREMITIES: No cyanosis, clubbing, or pedal edema. NEUROLOGICAL: Gross neurological examination did not reveal any focal deficits. SKIN: No rashes. Assessment and plan -Preoperative clearance for left hip surgery: Patient is low to intermediate operative risk for left hip surgery. Same thing was explained to the family and patient should be able to go for surgery today. Next -Hypertension: Patient is expected to have perioperative hypotension because of which will hold off amlodipine -Hyperlipidemia Hypertension or diabetes mellitus patient will be started on sliding scale insulin and metformin will be held. DVT prophylaxis: As per primary service Past Medical History Past Medical History: Diabetes Mellitus, Hypertension, Thyroid Disorder History of Any Multi-Drug Resistant Organisms: None Reported Past Surgical History: No Surgical Hx Reported Past Anesthesia/Blood Transfusion Reactions: Unable to Obtain Past Psychological History: No Psychological Hx Reported Smoking Status: Never smoker Past Alcohol Use History: None Reported Past Drug Use History: None Reported Medications and Allergies Home Medications Medication Instructions Recorded Confirmed Type Thyroid,Pork [[place] Thyroid] 60 mg PO DAILY 01/31/22 05/22/23 History Aspirin 81 mg PO DAILY 02/04/22 05/22/23 Rx Atorvastatin [Lipitor] 20 mg PO HS tab 02/04/22 05/22/23 Rx Pantoprazole [Protonix] 40 mg PO AC-BRKFST tab 02/04/22 05/22/23 Rx amLODIPine [Norvasc] 10 mg PO DAILY tab 02/04/22 05/22/23 Rx Ibuprofen [Motrin Ib] 200 mg PO Q8H PRN 05/22/23 05/22/23 History metFORMIN HCL ER [Glucophage XR] 500 mg PO BID-W/MEALS 05/22/23 05/22/23 History Allergies Allergy/AdvReac Type Severity Reaction Status Date / Time codeine Allergy Unknown - Verified 05/22/23 09:16 Per PCP office hydralazine Allergy Unknown - Verified 05/22/23 09:16 Per PCP office isosorbide [From Imdur] Allergy Unknown - Verified 05/22/23 09:16 Per PCP office losartan [From Cozaar] Allergy Unknown - Verified 05/22/23 09:16 Per PCP office Penicillins Allergy Unknown - Verified 05/22/23 09:16 Per PCP office Sulfa (Sulfonamide Allergy Unknown - Verified 05/22/23 09:16 Antibiotics) Per PCP office Physical Exam Vitals: Vital Signs Temp Pulse Resp BP Pulse Ox 05/22/23 14:00 85 18 148/75 96 05/22/23 13:00 93 18 153/72 98 05/22/23 12:00 82 18 142/70 97 05/22/23 10:00 98.2 F 87 18 129/66 96 05/22/23 08:30 78 18 133/66 96 05/22/23 05:22 85 16 150/72 100 Intake and Output 05/21/23 05/22/2305/22/23 22:59 06:59 14:59 Output Total 2250 Balance -2250 Output: Urine 2250 Uretheral (Angela) 800 Other: Weight 63.503 kg Results CBC & Chem 7: 05/22/23 05:49 05/22/23 05:49 Labs: Abnormal Lab Results - Last 24 Hours (Table) 05/22/23 05/22/23 05/22/23 Range/Units 05:49 05:49 05:49 Hgb 10.6 L (11.4-16.0) gm/dL Hct 33.3 L (34.0-46.0) % Neutrophils # 8.6 H (1.3-7.7) k/uL APTT 19.3 L (22.0-30.0) sec Chloride 110 H (98-107) mmol/L Carbon Dioxide 21 L (22-30) mmol/L Glucose 148 H (74-99) mg/dL
[2023-05-22] MEDS ORDERED: HYDROmorphone 0.5 MG/0.5 ML SYRINGE IVP PRN ×2 (16:06)
[2023-05-22] MEDS ORDERED: MAGNESIUM HYDROXIDE 2,400 MG/30 ML CUP PO PRN (16:06)
[2023-05-22] MEDS ORDERED: traMADol 50 MG TAB PO PRN ×2 (16:11)
[2023-05-22 16:27] LABS: Glucose,Whole Blood 158 mg/dL (70-110)
[2023-05-22] MEDS ORDERED: HYDROmorphone (PF) 1 MG/ML ONE (16:51)
[2023-05-22] MEDS ORDERED: fentaNYL (PF) 50 MCG/ML 2 ML AMP ONE (16:51)
[2023-05-22] MEDS ORDERED: LIDOCAINE 2% INJ 20 MG/ML (2 ML VIAL) ONE (16:51)
[2023-05-22] MEDS ORDERED: SUCCINYLCHOLINE CHLORIDE 200 MG/10 ML VIAL IV ONE (16:51)
[2023-05-22] MEDS ORDERED: PROPOFOL 10 MG/ML 20 ML VIAL IV ONE (16:51)
[2023-05-22] MEDS ORDERED: SODIUM CHLORIDE 0.9% 1,000 ML IV ONE (16:55)
[2023-05-22] MEDS ORDERED: SODIUM CHLORIDE 0.9% 50 ML with ceFAZolin 2,000 MG IV ONE ×2 (17:18)
--- NOTE | 2023-05-22 17:53 | P.OP ---
Date of Procedure: 05/22/23 Preoperative Diagnosis: Closed four-part intertrochanteric fracture left hip Postoperative Diagnosis: Closed four-part intertrochanteric fracture left hip Procedure(s) Performed: Close reduction and intramedullary hip screw left hip Implants: [employer] Intertan nail 125, 11.5 mm x 18 cm. [employer] Intertan integrated-interlocking lag screw, 90 mm lag screw, 85 mm compression screw. [employer] L-P screw, 5.0 mm x 32.5 mm. Anesthesia: GETA Surgeon: Kleber Montes Medical Records Specialist #1: Sabrina Hoskins Estimated Blood Loss (ml): 100 Pathology: none sent Condition: stable Disposition: PACU Indications for Procedure: This is a 70-year-old female sustained a ground-level fall at home. She sustained a 4 part intratrochanteric fracture of her left hip. After discussing the surgical nonsurgical treatment options with her family at length, I recommended a close reduction and intramedullary hip screw fixation of her left hip. They're agreeable this and informed consent was obtained. Operative Findings: The operative findings are consistent with a closed four-part intertrochanteric fracture of the left hip Description of Procedure: The patient was seen in the preoperative area, consent was reviewed, and the operative site was marked with a skin marker. The surgical procedure was discussed at length with both the patient and the family at the bedside. All questions were answered to the best of my ability. The patient was brought to the operating room and placed on the fracture table. Anesthesia was administered by the anesthesia department. 2 g of Ancef were administered intravenously. The patient was placed supine on the fracture table with the fractured extremity in traction boot. The other extremity was placed in a well leg crisostomo and the bony prominences were well padded. A universal timeout was then performed which confirmed the patient's name, surgical site, ALLERGIES, and consent. Fracture reduction was performed with a traction and abduction maneuver which was confirmed with fluoroscopy, both AP and lateral views.. After reduction was performed, the extremity was then preppe d with ChloraPrep solution and draped in the usual sterile fashion. Utilizing fluoroscopy to identify the tip of the greater trochanter, a 3 cm longitudinal incision was made just proximal to the greater trochanter. Incision was carried through the fascia to the tip of the greater trochanter. Utilizing a curved awl, the entry point was created at the tip of the greater trochanter and centralized in the AP and lateral planes. These locations were confirmed by fluoroscopy. A guidewire was then inserted down the medullary canal. Sequentially reaming of the femur was performed to 13 mm distally and 17 mm proximally with the channel reamer. After reaming, appropriate size nail was inserted over the guidewire. The nail was inserted to the appropriate depth and the guidewire was removed. Placement of the natali was confirmed with both AP and lateral fluoroscopic views. The lag screw drill sleeve was placed in the jig and a small skin incision was made on the lateral aspect of the leg and the lag screw drill sleeve was locked into the guide. The 3.2 mm guide pin sleeve was inserted through the lag screw drill sleeve down to bone. A 3.2 mm distally threaded guidewire was inserted through the guide pin sleeve. The guidewire was inserted in the desired position in the femoral head, both anterior and posterior. The lag screw length cage was inserted over the guidepin to the back of the lag screw drill sleeve. Lag screw length was then measured from the cage. Next, the 7.0 mm compression screw starter drill was inserted in the lag screw drill sleeve beneath the guidepin. The compression screw starter drill was advanced under power until it abutted the back and of the lag screw drill sleeve. The 7.0 mm compression screw drill was inserted through the lag screw drill sleeve into the hole created by the compression screw starter drill. This was advanced under fluoroscopy to a depth 5 mm less and the measurement taken for the guidepin. The compression screw drill was removed and the antirotation bar was inserted into the same hole. The 3.2 mm guide pin sleeve was then removed from the drill guide. The lag screw drill was then inserted to a depth that was measured by the lag screw gauge. This was done under fluoroscopy. The lag screw was inserted over the guidewire to the appropriate depth using fluoroscopy. Traction was then released. The antirotation bar was then removed and the compression screw was advanced through the lag screw drill sleeve beneath the lag screw. This was advanced to the appropriate compression was achieved. The proximal drill guide was then removed and the distal drill guide was then inserted in the jig. Skin incision was made down to bone and the distal drill guide was then placed. Distal hole was then drilled with a 4.0 mm drill and measured to the appropriate depth. Distal screw was then placed. The entire assembly was then removed and final fluoroscopic x-rays were obtained. The wounds were then irrigated copiously with saline solution. Fascia was closed with 0-Vicryl. Subcutaneous tissues were closed with 2-0 Vicryl and the skin was closed with marzena. Sterile dressings were applied. The patient was transported to the recovery room in stable condition. The business assistant AMANDA Nguyen was required due the complexity of surgery the need for skilled surgical lead for positioning draping retraction and frac ture reduction.
--- NOTE | 2023-05-22 18:14 | XR ---
Fluoroscopy History: IT nail left hip IT nail left hip. FL time 29 seconds. DAP 1.9030. [address] Montes.
--- NOTE | 2023-05-22 18:35 | XR ---
Fluoroscopy History: Status post hip surgery, assess surgical alignment post IT nailing left hip. Appropriate postoperative alignment.
[2023-05-22] MEDS: SENNOSIDES-DOCUSATE SODIUM 1 EACH TAB PO SCH (20:10)
[2023-05-22] MEDS: ATORVASTATIN 20 MG TAB PO SCH (20:10)
[2023-05-22 20:26] LABS: Glucose,Whole Blood 219 mg/dL (70-110)
[2023-05-23] MEDS: HYDROmorphone 0.5 MG/0.5 ML SYRINGE IVP PRN ×3 (00:14→07:29)
[2023-05-23] MEDS: SODIUM CHLORIDE 0.9% 1,000 ML IV SCH ×3 (00:22→07:34)
[2023-05-23] MEDS: PANTOPRAZOLE 40 MG TABLET PO SCH (06:23)
[2023-05-23] MEDS: SENNOSIDES-DOCUSATE SODIUM 1 EACH TAB PO SCH ×2 (06:24→22:18)
[2023-05-23] MEDS: ATORVASTATIN 20 MG TAB PO SCH ×2 (06:24→22:18)
[2023-05-23] MEDS: RIVAROXABAN 10 MG TAB PO SCH (08:32)
[2023-05-23] MEDS: ASPIRIN 81 MG PO SCH (08:32)
[2023-05-23] MEDS: THYROID, PORK 30 MG TAB PO SCH (08:32)
[2023-05-23 08:57] LABS: Basophils % (A) 0 %; Eosinophils % (A) 0 %; HCT 26.5 % (34.0-46.0); Hypochromasia Moderate; Lymphocytes # (A) 1.1 k/uL (1.0-4.8); Lymphocytes % (A) 11 %; MCH 25.7 pg (25.0-35.0); MCHC 30.7 g/dL (31.0-37.0); MCV 83.6 fL (80.0-100.0); Mean Platelet Volume 8.3; Monocytes # (A) 0.7 k/uL (0-1.0); Monocytes % (A) 7 %; Neutrophils # (A) 7.3 k/uL (1.3-7.7); Neutrophils % (A) 80 %; Platelet Count 325 k/uL (150-450); RBC 3.17 m/uL (3.80-5.40); RDW 13.4 % (11.5-15.5); WBC 9.2 k/uL (3.8-10.6)
[2023-05-23 09:02] LABS: HGB 8.1 gm/dL (11.4-16.0)
--- NOTE | 2023-05-23 09:53 | P.PN ---
Subjective Progress Note Date: 05/23/23 This is a 78-year-old female who is status post closed reduction and intramedullary hip screw fixation for left intertrochanteric hip fracture. This is postoperative day #1 and patient is seen and evaluated at bedside today. Patient is confused and has a 1:1 sitter at bedside today. No acute events overnight reported. Objective - Vital Signs Vital signs: Vital Signs Temp 98.3 F 05/23/23 08:03 Pulse 93 05/23/23 08:03 Resp 16 05/23/23 08:03 BP 130/70 05/23/23 08:03 Pulse Ox 92 L 05/23/23 08:45 FiO2 Intake & Output 05/22/23 05/23/23 05/23/23 18:59 06:59 18:59 Intake Total 550 940 Output Total 2350 Balance -1800 940 Weight 63.503 kg Intake: IV 550 Intake, IV Titration 940 Amount Sodium Chloride 0.9% 1, 840 000 ml @ 70 mls/hr IV . [id number] [facility] Rx#:[id number] ceFAZolin 2 gm In Sodium 100 Chloride 0.9% 50 ml @ 100 mls/hr IVPB Q8HR [facility] Rx# :[id number] Output: Urine 2250 Uretheral (Angela) 800 Estimated Blood Loss 100 - Exam Vital signs are stable. Patient is in no acute distress and is confused. Calf is soft and nontender to palpation. Dressing is clean, dry, and intact. Sensation intact. Neurovascular status and circulatory status are intact. - Labs CBC & Chem 7: 05/23/23 07:12 05/22/23 05:49 Labs: Abnormal Lab Results - Last 24 Hours (Table) 05/22/23 05/22/23 05/23/23 Range/Units 16:26 20:25 07:12 RBC 3.17 L (3.80-5.40) m/uL Hgb 8.1 L D (11.4-16.0) gm/dL Hct 26.5 L (34.0-46.0) % MCHC 30.7 L (31.0-37.0) g/dL POC Glucose (mg/dL) 158 H 219 H (70-110) mg/dL Assessment and Plan Assessment: Status post closed reduction and intramedullary hip screw for left intertrochanteric hip fracture. (1) Closed intertrochanteric fracture of left hip Current Visit: Yes Status: Acute Code(s): S72.142A - DISPLACED INTERTROCHANTERIC FRACTURE OF LEFT FEMUR, INIT SNOMED Code(s): 82861975 (2) Closed left hip fracture Current Visit: Yes Status: Acute Code(s): S72.002A - FRACTURE OF UNSP PART OF NECK OF LEFT FEMUR, INIT SNOMED Code(s): 714793501 (3) Fall Current Visit: Yes Status: Acute Code(s): W19.XXXA - UNSPECIFIED FALL, INITIAL ENCOUNTER SNOMED Code(s): 2972694 Plan: Continue routine postop care and pain control. Patient is started on Xarelto for anticoagulation. 50% percent weightbearing with a walker. Leave dressing in place for 7 days. Physical therapy for mobilization. Appreciate input from internal medicine. Patient will need ECF placement.
[2023-05-23] MEDS ORDERED: HALOPERIDOL LACTATE 5 MG/ML 1 ML VIAL IVP PRN (11:41)
[2023-05-23 11:42] LABS: Glucose,Whole Blood 241 mg/dL (70-110)
--- NOTE | 2023-05-23 11:50 | FL ---
Fluoroscopy INDICATION: Pain FINDINGS: Fluoroscopy time: 29 seconds. Total dose area product (DAP) in uGy*m?, mGy*cm? (or similar): 1.9030 Images obtained: 3. IMPRESSIONS: 1. Documentation of fluoroscopy.
--- NOTE | 2023-05-23 13:38 | P.PN ---
Subjective 72-year-old female admitted for left hip fracture, mechanical fall. EKG did not show any significant abnormality patient does have dementia baseline alert oriented 2. Patient doesn't have any history of coronary artery disease does have history of hypertension and hyperlipidemia and a type 2 diabetes mellitus. Patient denied any chest pain patient had shortness of breath orthopnea or chest x-ray did not show any significant abnormality. 05/23/2023 Patient has advanced dementia and the patient is completely confused and paranoid but alert patient has a sitter on the bedside Seroquel was ordered for nighttime for agitation as needed. Patient is declining to take any medications patient doesn't have any pain at this time although opiate and narcotic pain medications were discontinued. Review of systems: Unable to obtain due to her clinical condition All inpatient medications were reviewed and appropriate changes in these medica tions as dictated in the interval history and assessment and plan. PHYSICAL EXAMINATION: GENERAL: The patient is alert and oriented x1, not in any acute distress. Well developed, well nourished. HEENT: Pupils are round and equally reacting to light. EOMI. No scleral icterus. No conjunctival pallor. Normocephalic, atraumatic. No pharyngeal erythema. No thyromegaly. CARDIOVASCULAR: S1 and S2 present. No murmurs, rubs, or gallops. PULMONARY: Chest is clear to auscultation, no wheezing or crackles. ABDOMEN: Soft, nontender, nondistended, normoactive bowel sounds. No palpable organomegaly. MUSCULOSKELETAL: Deferred to orthopedic surgery EXTREMITIES: No cyanosis, clubbing, or pedal edema. NEUROLOGICAL: Patient is confused SKIN: No rashes. Assessment and plan -Left hip arthroplasty: Regarding pain management and discontinue Colon anticholinergic opiate analgesia medications avoid benzodiazepines and barbiturates as well -Hypertension: Patient will be resumed on amlodipine -Hyperlipidemia Hypertension or diabetes mellitus patient will be started on sliding scale insulin and metformin will be held. DVT prophylaxis: As per primary service Objective - Vital Signs Vital signs: Vital Signs Temp 98.3 F 05/23/23 08:03 Pulse 93 05/23/23 08:03 Resp 16 05/23/23 08:03 BP 130/70 05/23/23 08:03 Pulse Ox 92 L 05/23/23 08:45 FiO2 Intake & Output 05/22/23 05/23/23 05/23/23 18:59 06:59 18:59 Intake Total 550 940 Output Total 2350 Balance -1800 940 Weight 63.503 kg Intake: IV 550 Intake, IV Titration 940 Amount Sodium Chloride 0.9% 1, 840 000 ml @ 70 mls/hr IV . [id number] [facility] Rx#:[id number] ceFAZolin 2 gm In Sodium 100 Chloride 0.9% 50 ml @ 100 mls/hr IVPB Q8HR [facility] Rx# :[id number] Output: Urine 2250 Uretheral (Angela) 800 Estimated Blood Loss 100 - Labs CBC & Chem 7: 05/23/23 07:12 05/22/23 05:49 Labs: Abnormal Lab Results - Last 24 Hours (Table) 05/22/23 05/22/23 05/23/23 Range/Units 16:26 20:25 07:12 RBC 3.17 L (3.80-5.40) m/uL Hgb 8.1 L D (11.4-16.0) gm/dL Hct 26.5 L (34.0-46.0) % MCHC 30.7 L (31.0-37.0) g/dL POC Glucose (mg/dL) 158 H 219 H (70-110) mg/dL 05/23/23 Range/Units 11:40 RBC (3.80-5.40) m/uL Hgb (11.4-16.0) gm/dL Hct (34.0-46.0) % MCHC (31.0-37.0) g/dL POC Glucose (mg/dL) 241 H (70-110) mg/dL
[2023-05-23] MEDS: OLANZapine ODT 5 MG TAB PO PRN (13:51)
[2023-05-23] MEDS: ACETAMINOPHEN TAB 325 MG TAB PO PRN ×2 (14:40→22:19)
[2023-05-23 16:32] LABS: Glucose,Whole Blood 176 mg/dL (70-110)
[2023-05-23] MEDS: QUEtiapine 25 MG TAB PO PRN (22:18)
[2023-05-24] MEDS: PANTOPRAZOLE 40 MG TABLET PO SCH (08:57)
[2023-05-24 09:29] LABS: HCT 23.5 % (37.2-46.3); HGB 7.2 d/dL (12.0-15.0); MCH 25.9 pg (27.0-32.0); MCHC 30.6 d/dL (32.0-37.0); MCV 84.5 FL (80.0-97.0); Mean Platelet Volume 10.1 FL (9.5-12.2); NRBC Per 100 WBC 0 X 10*3/uL (0.00-0.01); Platelet Count 305 X 10*3/uL (140-440); RBC 2.78 X 10*6/uL (4.10-5.20); WBC 8.66 X 10*3/uL (4.50-10.00)
[2023-05-24] MEDS: amLODIPine 10 MG TAB PO SCH ×2 (09:44→10:33)
[2023-05-24] MEDS: RIVAROXABAN 10 MG TAB PO SCH (09:44)
[2023-05-24] MEDS: ASPIRIN 81 MG PO SCH (09:44)
[2023-05-24] MEDS: THYROID, PORK 30 MG TAB PO SCH ×2 (09:44→10:34)
--- NOTE | 2023-05-24 10:20 | P.PN ---
Subjective Progress Note Date: 05/24/23 This is a 78-year-old female who is status post closed reduction and intramedullary hip screw fixation for left intertrochanteric hip fracture. This is postoperative day #2 and patient is seen and evaluated at bedside today with Dr. Kleber Montes. Patient is confused and has a 1:1 sitter at bedside today. No acute events overnight reported. Objective - Vital Signs Vital signs: Vital Signs Temp 98.2 F 05/24/23 07:46 Pulse 91 05/24/23 07:46 Resp 18 05/24/23 07:46 BP 148/68 05/24/23 07:46 Pulse Ox 93 L 05/24/23 08:09 FiO2 Intake & Output 05/23/23 05/24/23 05/24/23 18:59 06:59 18:59 Output Total 1000 600 Balance -1000 -600 Output: Urine 1000 600 Other: Voiding Method Indwelling Catheter Indwelling Catheter - Exam Vital signs are stable. Patient is in no acute distress and is confused. Calf is soft and nontender to palpation. Dressing is clean, dry, and intact. Sensation intact. Neurovascular status and circulatory status are intact. - Labs CBC & Chem 7: 05/24/23 06:01 05/22/23 05:49 Labs: Abnormal Lab Results - Last 24 Hours (Table) 05/23/23 05/23/23 05/24/23 Range/Units 11:40 16:30 06:01 RBC 2.78 L (4.10-5.20) X 10*6/uL Hgb 7.2 L (12.0-15.0) d/dL Hct 23.5 L (37.2-46.3) % MCH 25.9 L (27.0-32.0) pg MCHC 30.6 L (32.0-37.0) d/dL POC Glucose (mg/dL) 241 H 176 H (70-110) mg/dL Assessment and Plan Assessment: Status post closed reduction and intramedullary hip screw for left intertrochanteric hip fracture. (1) Closed intertrochanteric fracture of left hip Current Visit: Yes Status: Acute Code(s): S72.142A - DISPLACED INTERTROCHANTERIC FRACTURE OF LEFT FEMUR, INIT SNOMED Code(s): 23230663 (2) Closed left hip fracture Current Visit: Yes Status: Acute Code(s): S72.002A - FRACTURE OF UNSP PART OF NECK OF LEFT FEMUR, INIT SNOMED Code(s): 704671774 (3) Fall Current Visit: Yes Status: Acute Code(s): W19.XXXA - UNSPECIFIED FALL, INITIAL ENCOUNTER SNOMED Code(s): 4547477 Plan: Continue routine postop care and pain control. Patient is started on Xarelto for anticoagulation. 50% percent weightbearing with a walker. Leave dressing in place for 7 days. Physical therapy for mobilization. Appreciate input from internal medicine. Patient will need ECF placement.
[2023-05-24] MEDS: ACETAMINOPHEN TAB 325 MG TAB PO PRN ×2 (10:33→21:52)
[2023-05-24] MEDS: OLANZapine ODT 5 MG TAB PO PRN (10:40)
--- NOTE | 2023-05-24 11:19 | P.PN ---
Subjective 72-year-old female admitted for left hip fracture, mechanical fall. EKG did not show any significant abnormality patient does have dementia baseline alert oriented 2. Patient doesn't have any history of coronary artery disease does have history of hypertension and hyperlipidemia and a type 2 diabetes mellitus. Patient denied any chest pain patient had shortness of breath orthopnea or chest x-ray did not show any significant abnormality. 05/23/2023 Patient has advanced dementia and the patient is completely confused and paranoid but alert patient has a sitter on the bedside Seroquel was ordered for nighttime for agitation as needed. Patient is declining to take any medications patient doesn't have any pain at this time although opiate and narcotic pain medications were discontinued. 05/23/2023 Patient is still having some agitation episodes but improved with Seroquel patient has a sitter at bedside for safety Review of systems: Unable to obtain due to her clinical condition All inpatient medications were reviewed and appropriate changes in these medications as dictated in the interval history and assessment and plan. PHYSICAL EXAMINATION: GENERAL: The patient is alert and oriented x1, not in any acute distress. Well developed, well nourished. HEENT: Pupils are round and equally reacting to light. EOMI. No scleral icterus. No conjunctival pallor. Normocephalic, atraumatic. No pharyngeal erythema. No thyromegaly. CARDIOVASCULAR: S1 and S2 present. No murmurs, rubs, or gallops. PULMONARY: Chest is clear to auscultation, no wheezing or crackles. ABDOMEN: Soft, nontender, nondistended, normoactive bowel sounds. No palpable organomegaly. MUSCULOSKELETAL: Deferred to orthopedic surgery EXTREMITIES: No cyanosis, clubbing, or pedal edema. NEUROLOGICAL: Patient is confused SKIN: No rashes. Assessment and plan -Left hip arthroplasty: Regarding pain management and thyroid anticholinergic opiate analgesia medications avoid benzodiazepines and barbiturates as well -Hypertension: Fairly controlled on amlodipine -Hyperlipidemia Hypertension or diabetes mellitus patient will be started on sliding scale in sulin and metformin will be held. -Advanced vascular dementia DVT prophylaxis: As per primary service Objective - Vital Signs Vital signs: Vital Signs Temp 98.2 F 05/24/23 07:46 Pulse 91 05/24/23 07:46 Resp 18 05/24/23 07:46 BP 148/68 05/24/23 07:46 Pulse Ox 93 L 05/24/23 08:09 FiO2 Intake & Output 05/23/23 05/24/23 05/24/23 18:59 06:59 18:59 Output Total 1000 600 Balance -1000 -600 Output: Urine 1000 600 Other: Voiding Method Indwelling Catheter Indwelling Catheter Indwelling Catheter - Labs CBC & Chem 7: 05/24/23 06:01 05/22/23 05:49 Labs: Abnormal Lab Results - Last 24 Hours (Table) 05/23/23 05/23/23 05/24/23 Range/Units 11:40 16:30 06:01 RBC 2.78 L (4.10-5.20) X 10*6/uL Hgb 7.2 L (12.0-15.0) d/dL Hct 23.5 L (37.2-46.3) % MCH 25.9 L (27.0-32.0) pg MCHC 30.6 L (32.0-37.0) d/dL POC Glucose (mg/dL) 241 H 176 H (70-110) mg/dL
[2023-05-24] MEDS: SENNOSIDES-DOCUSATE SODIUM 1 EACH TAB PO SCH (21:52)
[2023-05-24] MEDS: QUEtiapine 25 MG TAB PO PRN (21:52)
[2023-05-24] MEDS: ATORVASTATIN 20 MG TAB PO SCH (21:52)
[2023-05-25] MEDS: PANTOPRAZOLE 40 MG TABLET PO SCH (06:19)
[2023-05-25] MEDS: amLODIPine 10 MG TAB PO SCH (08:23)
[2023-05-25] MEDS: ASPIRIN 81 MG PO SCH (08:23)
[2023-05-25] MEDS: THYROID, PORK 30 MG TAB PO SCH (08:24)
[2023-05-25] MEDS: RIVAROXABAN 10 MG TAB PO SCH (08:24)
--- NOTE | 2023-05-25 10:46 | P.PN ---
Subjective Progress Note Date: 05/25/23 This is a 78-year-old female who is status post closed reduction and intramedullary hip screw fixation for left intertrochanteric hip fracture. This is postoperative day #3 and patient is seen and evaluated at bedside today with Dr. Kleber Montes. Patient is confused and has a 1:1 sitter at bedside today. No acute events overnight reported. Objective - Vital Signs Vital signs: Vital Signs Temp 99.6 F 05/25/23 07:23 Pulse 88 05/25/23 07:23 Resp 15 05/25/23 07:23 BP 151/73 05/25/23 07:23 Pulse Ox 94 L 05/25/23 10:02 FiO2 Intake & Output 05/24/23 05/25/23 05/25/23 18:59 06:59 18:59 Output Total 0 600 Balance 0 -600 Output: Urine 0 600 Other: Voiding Method Indwelling Catheter Indwelling Catheter Indwelling Catheter - Exam Vital signs are stable. Patient is in no acute distress and is confused. Calf is soft and nontender to palpation. Dressing is clean, dry, and intact. Sensation intact. Neurovascular status and circulatory status are intact. - Labs CBC & Chem 7: 05/24/23 06:01 05/22/23 05:49 Assessment and Plan Assessment: Status post closed reduction and intramedullary hip screw for left intertrochanteric hip fracture. (1) Closed intertrochanteric fracture of left hip Current Visit: Yes Status: Acute Code(s): S72.142A - DISPLACED INTERTROCHANTERIC FRACTURE OF LEFT FEMUR, INIT SNOMED Code(s): 30206040 (2) Closed left hip fracture Current Visit: Yes Status: Acute Code(s): S72.002A - FRACTURE OF UNSP PART OF NECK OF LEFT FEMUR, INIT SNOMED Code(s): 664936656 (3) Fall Current Visit: Yes Status: Acute Code(s): W19.XXXA - UNSPECIFIED FALL, INITIAL ENCOUNTER SNOMED Code(s): 5601967 Plan: Continue routine postop care and pain control. Patient is started on Xarelto for anticoagulation. 50% percent weightbearing with a walker. Leave dressing in place for 7 days. Physical therapy for mobilization. Appreciate input from internal medicine. Patient is awaiting ECF placement.
[2023-05-25 18:23] LABS: Basophils # (A) 0.04 X 10*3/uL (0.00-0.10); Basophils % (A) 0.5 %; Eosinophils # (A) 0.03 X 10*3/uL (0.04-0.35); Eosinophils % (A) 0.4 %; HCT 23.9 % (37.2-46.3); HGB 7.2 d/dL (12.0-15.0); Lymphocytes # (A) 1.55 X 10*3/uL (0.90-5.00); Lymphocytes % (A) 19.2 %; MCH 25.8 pg (27.0-32.0); MCHC 30.1 d/dL (32.0-37.0); MCV 85.7 FL (80.0-97.0); Mean Platelet Volume 10.5 FL (9.5-12.2); Monocytes # (A) 0.52 X 10*3/uL (0.20-1.00); Monocytes % (A) 6.4 %; NRBC Per 100 WBC 0 X 10*3/uL (0.00-0.01); Neutrophils # (A) 5.91 X 10*3/uL (1.80-7.70); Platelet Count 306 X 10*3/uL (140-440); RBC 2.79 X 10*6/uL (4.10-5.20); RDW 12.9 % (11.5-14.5); WBC 8.09 X 10*3/uL (4.50-10.00)
[2023-05-25] MEDS: ATORVASTATIN 20 MG TAB PO SCH (20:20)
[2023-05-25] MEDS: QUEtiapine 25 MG TAB PO PRN (20:21)
[2023-05-25] MEDS: SENNOSIDES-DOCUSATE SODIUM 1 EACH TAB PO SCH (20:21)
--- NOTE | 2023-05-26 06:13 | P.PN ---
Subjective Progress Note Date: 05/25/23 72-year-old female admitted for left hip fracture, mechanical fall. EKG did not show any significant abnormality patient does have dementia baseline alert oriented 2. Patient doesn't have any history of coronary artery disease does have history of hypertension and hyperlipidemia and a type 2 diabetes mellitus. Patient denied any chest pain patient had shortness of breath orthopnea or chest x-ray did not show any significant abnormality. 05/23/2023 Patient has advanced dementia and the patient is completely confused and paranoid but alert patient has a sitter on the bedside Seroquel was ordered for nighttime for agitation as needed. Patient is declining to take any medications patient doesn't have any pain at this time although opiate and narcotic pain medications were discontinued. 05/24/2023 Patient is still having some agitation episodes but improved with Seroquel patient has a sitter at bedside for safety 05/25/2023 Patient is seen and evaluated in follow-up this morning continues with product safety expert at the bedside. Patient reports to eating and tolerating diet although sitter at bedside reports she is eating very little. Encouraged increase activity as tolerated and recommend working with physical therapy daily. Patient with orthopedics following and plans for ECF. Review of systems: Unable to obtain due to her confusion Active Medications Acetaminophen (Acetaminophen Tab 325 Mg Tab) 650 mg PO Q6HR PRN PRN Reason: Fever and/ or Pain Last Admin: 05/24/23 21:52 Dose: 650 mg Amlodipine Besylate (Amlodipine 10 Mg Tab) 10 mg PO DAILY [facility] Last Admin: 05/25/23 08:23 Dose: 10 mg Aspirin (Aspirin 81 Mg) 81 mg PO DAILY [facility] Last Admin: 05/25/23 08:23 Dose: 81 mg Atorvastatin Calcium (Atorvastatin 20 Mg Tab) 20 mg PO HS [facility] Last Admin: 05/25/23 20:20 Dose: 20 mg Magnesium Hydroxide (Magnesium Hydroxide 2,400 Mg/30 Ml Cup) 2,400 mg PO DAILY PRN PRN Reason: Constipation Naloxone HCl (Naloxone 0.4 Mg/Ml 1 Ml Vial) 0.2 mg IV Q2M PRN PRN Reason: Opioid Reversal Naloxone HCl (Naloxone 0.4 Mg/Ml 1 Ml Vial) 0.2 mg IV Q2M PRN PRN Reason: Opioid Reversal Olanzapine (Olanzapine Odt 5 Mg Tab) 5 mg PO DAILY PRN PRN Reason: Anxiety Last Admin: 05/24/23 10:40 Dose: 5 mg Ondansetron HCl (Ondansetron 4 Mg/2 Ml Vial) 4 mg IVP Q8HR PRN PRN Reason: Nausea And Vomiting Last Admin: 05/22/23 19:17 Dose: 4 mg Ondansetron HCl (Ondansetron 4 Mg/2 Ml Vial) 4 mg IVP Q8H PRN PRN Reason: Nausea And Vomiting Pantoprazole Sodium (Pantoprazole 40 Mg Tablet) 40 mg PO AC-BRKFST [facility] Last Admin: 05/25/23 06:19 Dose: 40 mg Quetiapine Fumarate (Quetiapine 25 Mg Tab) 12.5 mg PO HS PRN PRN Reason: Agitation Last Admin: 05/25/23 20:21 Dose: 12.5 mg Rivaroxaban (Rivaroxaban 10 Mg Tab) 10 mg PO DAILY [facility]; Protocol Stop: 06/27/23 09:01 Last Admin: 05/25/23 08:24 Dose: 10 mg Senna/Docusate Sodium (Sennosides-Docusate Sodium 1 Each Tab) 2 each PO HS [facility] Last Admin: 05/25/23 20:21 Dose: 2 each Thyroid (Thyroid, Pork 30 Mg Tab) 60 mg PO DAILY [facility] Last Admin: 05/25/23 08:24 Dose: 60 mg PHYSICAL EXAMINATION: GENERAL: The patient is alert and oriented x1, not in any acute distress. Well developed, well nourished. Elderly appearing HEENT: Pupils are round and equally reacting to light. EOMI. No scleral icterus. No conjunctival pallor. Normocephalic, atraumatic. No pharyngeal erythema. No thyromegaly. CARDIOVASCULAR: S1 and S2 muffled PULMONARY: Diminished breath sounds bilaterally with no wheezing or crackles. ABDOMEN: Soft, nontender, nondistended, normoactive bowel sounds. No palpable organomegaly. MUSCULOSKELETAL: Deferred to orthopedic surgery EXTREMITIES: No cyanosis, clubbing, or pedal edema. NEUROLOGICAL: Patient is confused SKIN: No rashes. Assessment: -Left hip arthroplasty -Hypertension history -Hyperlipidemia -History of diabetes mellitus -Advanced vascular dementia -DVT prophylaxis: As per primary service -GI prophylaxis -Full code Plan: Recommend continue with current medications and management per orthopedics Recommend PT/OT therapy daily Patient currently has product safety expert at bedside and encouraged opening shades and windows during the day and frequent reorientation Encouraged oral intake Social work following working on discharge planning to ECF We will continue to follow with orthopedics during hospitalization. Thank you kindly for this consultation The impression and plan of care has been dictated by Malena Ayoub, Nurse Practitioner as directed. Dr. Garrick MD I have performed a history and examination and MDM of this patient, discussed the same with the dictator, and agree with the dictator's assessment and plan as written ,documented as a scribe. Based on total visit time, I have performed more than 50% of the visit. Objective - Vital Signs Vital signs: Vital Signs Temp 99.6 F 05/25/23 07: Pulse 88 05/25/23 07:23 Resp 15 05/25/23 07:23 BP 151/73 05/25/23 07:23 Pulse Ox 94 L 05/25/23 10:02 FiO2 Intake & Output 05/24/23 05/25/23 05/25/23 18:59 06:59 18:59 Output Total 0 600 Balance 0 -600 Output: Urine 0 600 Other: Voiding Method Indwelling Catheter Indwelling Catheter Indwelling Catheter - Labs CBC & Chem 7: 05/25/23 11:42 05/22/23 05:49
[2023-05-26] MEDS: PANTOPRAZOLE 40 MG TABLET PO SCH (08:35)
[2023-05-26 08:51] LABS: African American GFR (CKD) >90 (>60 ml/min/1.73 sqM); Anion Gap 8 mmol/L; Blood Urea Nitrogen 14 mg/dL (7-17); Calcium 7.9 mg/dL (8.4-10.2); Carbon Dioxide 22 mmol/L (22-30); Chloride 108 mmol/L (98-107); Glucose 180 mg/dL (74-99); Non-African American GFR(CKD) >90 (>60 ml/min/1.73 sqM); Potassium 3.6 mmol/L (3.5-5.1); Sodium 138 mmol/L (137-145)
--- NOTE | 2023-05-26 10:28 | P.PN ---
Subjective Progress Note Date: 05/26/23 This is a 78-year-old female who is status post closed reduction and intramedullary hip screw fixation for left intertrochanteric hip fracture. This is postoperative day #4 and patient is seen and evaluated at bedside today with Dr. Kleber Montes. Patient is confused and has a 1:1 sitter at bedside today. No acute events overnight reported. Objective - Vital Signs Vital signs: Vital Signs Temp 98.7 F 05/26/23 07:15 Pulse 91 05/26/23 07:15 Resp 17 05/26/23 07:15 BP 125/72 05/26/23 07:15 Pulse Ox 96 05/26/23 08:53 FiO2 Intake & Output 05/25/23 05/26/23 05/26/23 18:59 06:59 18:59 Output Total 300 Balance -300 Output: Urine 300 Other: Voiding Method Indwelling Catheter Indwelling Catheter - Exam Vital signs are stable. Patient is in no acute distress and is confused. Calf is soft and nontender to palpation. Dressing is clean, dry, and intact. Sensation intact. Neurovascular status and circulatory status are intact. - Labs CBC & Chem 7: 05/25/23 11:42 05/26/23 07:35 Labs: Abnormal Lab Results - Last 24 Hours (Table) 05/25/23 05/26/23 Range/Units 11:42 07:35 RBC 2.79 L (4.10-5.20) X 10*6/uL Hgb 7.2 L (12.0-15.0) d/dL Hct 23.9 L (37.2-46.3) % MCH 25.8 L (27.0-32.0) pg MCHC 30.1 L (32.0-37.0) d/dL Eosinophils # 0.03 L (0.04-0.35) X 10*3/uL Chloride 108 H (98-107) mmol/L Creatinine 0.47 L (0.52-1.04) mg/dL Glucose 180 H (74-99) mg/dL Calcium 7.9 L (8.4-10.2) mg/dL Assessment and Plan Assessment: Status post closed reduction and intramedullary hip screw for left intertrochanteric hip fracture. (1) Closed intertrochanteric fracture of left hip Current Visit: Yes Status: Acute Code(s): S72.142A - DISPLACED INTERTROCHANTERIC FRACTURE OF LEFT FEMUR, INIT SNOMED Code(s): 04691217 (2) Closed left hip fracture Current Visit: Yes Status: Acute Code(s): S72.002A - FRACTURE OF UNSP PART OF NECK OF LEFT FEMUR, INIT SNOMED Code(s): 030329729 (3) Fall Current Visit: Yes Status: Acute Code(s): W19.XXXA - UNSPECIFIED FALL, INITIAL ENCOUNTER SNOMED Code(s): 1080630 Plan: Continue routine postop care and pain control. Patient is started on Xarelto for anticoagulation. 50% percent weightbearing with a walker. Leave dressing in place for 7 days. Physical therapy for mobilization. Appreciate input from internal medicine. Patient is awaiting ECF placement.
[2023-05-26] MEDS: amLODIPine 10 MG TAB PO SCH ×2 (10:44→11:39)
[2023-05-26] MEDS: RIVAROXABAN 10 MG TAB PO SCH ×2 (10:45→11:39)
[2023-05-26] MEDS: THYROID, PORK 30 MG TAB PO SCH ×2 (10:45→11:39)
[2023-05-26] MEDS: ASPIRIN 81 MG PO SCH ×2 (10:45→11:39)
[2023-05-26] MEDS ORDERED: POTASSIUM CHLORIDE ER 20 MEQ TAB.ER PO STA (14:26)
--- NOTE | 2023-05-26 14:27 | P.PN ---
Subjective Progress Note Date: 05/26/23 72-year-old female admitted for left hip fracture, mechanical fall. EKG did not show any significant abnormality patient does have dementia baseline alert oriented 2. Patient doesn't have any history of coronary artery disease does have history of hypertension and hyperlipidemia and a type 2 diabetes mellitus. Patient denied any chest pain patient had shortness of breath orthopnea or chest x-ray did not show any significant abnormality. 05/23/2023 Patient has advanced dementia and the patient is completely confused and paranoid but alert patient has a sitter on the bedside Seroquel was ordered for nighttime for agitation as needed. Patient is declining to take any medications patient doesn't have any pain at this time although opiate and narcotic pain medications were discontinued. 05/24/2023 Patient is still having some agitation episodes but improved with Seroquel patient has a sitter at bedside for safety 05/25/2023 Patient is seen and evaluated in follow-up this morning continues with drug safety data management specialist at the bedside. Patient reports to eating and tolerating diet although sitter at bedside reports she is eating very little. Encouraged increase activity as tolerated and recommend working with physical therapy daily. Patient with orthopedics following and plans for ECF. 05/26/2023 Patient is seen and evaluated in follow-up resting with drug safety data management specialist at bedside although easily arousable. Patient continues to be at baseline and would recommend encouraging increased activity as tolerated and have physical therapy evaluate the patient. Orthopedics following with plans for ECF on discharge. Follow-up labs reviewed with a potassium of 3.6 and will provide supplementation and encouraged oral intake. Patient is currently afebrile with no reported chest pain or shortness of breath. No reported nausea or vomiting and oral intake is fair. Recommend ensure supplements between meals. Review of systems: Unable to obtain due to her confusion PHYSICAL EXAMINATION: GENERAL: The patient is alert and oriented x1, not in any acute distress. Well developed, well nourished. Elderly appearing HEENT: Pupils are round and equally reacting to light. EOMI. No scleral icterus. No conjunctival pallor. Normocephalic, atraumatic. No pharyngeal erythema. No thyromegaly. CARDIOVASCULAR: S1 and S2 muffled PULMONARY: Diminished breath sounds bilaterally with no wheezing or crackles. ABDOMEN: Soft, nontender, nondistended, normoactive bowel sounds. No palpable organomegaly. MUSCULOSKELETAL: Deferred to orthopedic surgery EXTREMITIES: No cyanosis, clubbing, or pedal edema. NEUROLOGICAL: Patient is confused SKIN: No rashes. Assessment: -Left hip arthroplasty -Hypertension history -Hyperlipidemia -History of diabetes mellitus -Advanced vascular dementia -DVT prophylaxis: As per primary service -GI prophylaxis -Full code Plan: Recommend continue with current medications and management per orthopedics Recommend PT/OT therapy daily Patient currently has drug safety data management specialist at bedside and encouraged opening shades and windows during the day and frequent reorientation Encouraged oral intake, will add ensure supplements Social work following working on discharge planning to [facility] We will continue to follow with orthopedics during hospitalization. Thank you kindly for this consultation The impression and plan of care has been dictated by Malena Ayoub, Nurse Practitioner as directed. Dr. Garrick MD I have performed a history and examination and MDM of this patient, discussed the same with the dictator, and agree with the dictator's assessment and plan as written ,documented as a scribe. Based on total visit time, I have performed more than 50% of the visit. Objective - Vital Signs Vital signs: Vital Signs Temp 98.7 F 05/26/23 07:15 Pulse 91 05/26/23 07:15 Resp 17 05/26/23 07:15 BP 125/72 05/26/23 07:15 Pulse Ox 96 05/26/23 08:53 FiO2 Intake & Output 05/25/23 05/26/23 05/26/23 18:59 06:59 18:59 Output Total 300 Balance -300 Output: Urine 300 Other: Voiding Method Indwelling Catheter Indwelling Catheter - Labs CBC & Chem 7: 05/25/23 11:42 05/26/23 07:35 Labs: Abnormal Lab Results - Last 24 Hours (Table) 05/25/23 05/26/23 Range/Units 11:42 07:35 RBC 2.79 L (4.10-5.20) X 10*6/uL Hgb 7.2 L (12.0-15.0) d/dL Hct 23.9 L (37.2-46.3) % MCH 25.8 L (27.0-32.0) pg MCHC 30.1 L (32.0-37.0) d/dL Eosinophils # 0.03 L (0.04-0.35) X 10*3/uL Chloride 108 H (98-107) mmol/L Creatinine 0.47 L (0.52-1.04) mg/dL Glucose 180 H (74-99) mg/dL Calcium 7.9 L (8.4-10.2) mg/dL
[2023-05-26] MEDS: OLANZapine ODT 5 MG TAB PO PRN (14:49)
[2023-05-26] MEDS: QUEtiapine 25 MG TAB PO PRN (20:44)
[2023-05-26] MEDS: ATORVASTATIN 20 MG TAB PO SCH (20:44)
[2023-05-26] MEDS: SENNOSIDES-DOCUSATE SODIUM 1 EACH TAB PO SCH (20:44)
[2023-05-27] MEDS: ACETAMINOPHEN TAB 325 MG TAB PO PRN (01:14)
--- NOTE | 2023-05-27 07:32 | P.PN ---
Subjective Progress Note Date: 05/27/23 Principal diagnosis: Alzheimer's dementia. Left hip fracture. Status post intertrochanteric fracture fixation. This is a 78-year-old female who is status post closed reduction and intramedullary hip screw fixation for left intertrochanteric hip fracture. This is postoperative day #5 and patient is seen and evaluated at bedside today.patient is sleeping soundly. She still has a 1:1 sittter at bedside today. No acute events overnight reported. Objective - Vital Signs Vital signs: Vital Signs Temp 96.8 F L 05/27/23 07:22 Pulse 88 05/27/23 07:22 Resp 16 05/27/23 07:22 BP 138/72 05/27/23 07:22 Pulse Ox 95 05/27/23 07:22 FiO2 Intake & Output 05/26/23 05/27/23 05/27/23 18:59 06:59 18:59 Output Total 600 Balance -600 Output: Urine 600 Other: Voiding Method Indwelling Catheter - Exam Patient is resting soundly. I did not awaken her. No obvious deformities noted to the lower extremities. Sitter is at bedside. - Labs CBC & Chem 7: 05/25/23 11:42 05/26/23 07:35 Labs: Abnormal Lab Results - Last 24 Hours (Table) 05/26/23 Range/Units 07:35 Chloride 108 H (98-107) mmol/L Creatinine 0.47 L (0.52-1.04) mg/dL Glucose 180 H (74-99) mg/dL Calcium 7.9 L (8.4-10.2) mg/dL Assessment and Plan (1) Closed intertrochanteric fracture of left hip Current Visit: Yes Status: Acute Code(s): S72.142A - DISPLACED INTERTROCHANTERIC FRACTURE OF LEFT FEMUR, INIT SNOMED Code(s): 98394420 (2) Closed left hip fracture Current Visit: Yes Status: Acute Code(s): S72.002A - FRACTURE OF UNSP PART OF NECK OF LEFT FEMUR, INIT SNOMED Code(s): 843416342 (3) Fall Current Visit: Yes Status: Acute Code(s): W19.XXXA - UNSPECIFIED FALL, INITIAL ENCOUNTER SNOMED Code(s): 4712264 (4) Altered mental status Current Visit: No Status: Acute Code(s): R41.82 - ALTERED MENTAL STATUS, UNSPECIFIED SNOMED Code(s): 410497661
[2023-05-27] MEDS: amLODIPine 10 MG TAB PO SCH (09:50)
[2023-05-27] MEDS: THYROID, PORK 30 MG TAB PO SCH (09:50)
[2023-05-27] MEDS: ASPIRIN 81 MG PO SCH (09:50)
[2023-05-27] MEDS: PANTOPRAZOLE 40 MG TABLET PO SCH (09:50)
[2023-05-27] MEDS: RIVAROXABAN 10 MG TAB PO SCH (09:50)
--- NOTE | 2023-05-27 11:31 | P.PN ---
Subjective Progress Note Date: 05/27/23 this is a 78 year old female patient who presented to the ER after sustaining a fall at home. Patient does have a history of dementia with a baseline of alert and oriented 2. Patient underwent left hip arthoplasty on 05/22/2023. Patient has past medical history of hypertension, hyperlipidemia, diabetes mellitus and advanced vascular dementia. Apparently patient had episode of increased agitation and confusion at nighttime. Patient was started on Seroquel and health and safety coordinator. Dr. Mccauley's group was covering for 05/22/2023 to 05/26/2023 On 05/27/2023 patient is alert and oriented to 1. Currently sitting in bed denies any pain. Denies chest pain or shortness of breath. Denies nausea vomiting or diarrhea. Left hip dressing is clean dry and intact. Discharge planning is in progress. Patient will likely need ECF upon discharge Objective - Vital Signs Vital signs: Vital Signs Temp 96.8 F L 05/27/23 07:22 Pulse 88 05/27/23 07:22 Resp 16 05/27/23 07:22 BP 138/72 05/27/23 07:22 Pulse Ox 95 05/27/23 07:22 FiO2 Intake & Output 05/26/23 05/27/23 05/27/23 18:59 06:59 18:59 Output Total 600 Balance -600 Output: Urine 600 Other: Voiding Method Indwelling Catheter - Exam Head normocephalic Neck supple Lungs clear to auscultation bilaterally no wheezing or crackles Heart regular rate and rhythm S1-S2, no rub or gallop Abdomen is soft nontender nondistended positive bowel sounds no hepatosplenomegaly Extremities no edema. Left hip dressing clean dry and intact Neuro alert and orientated to 1. Known advanced dementia - Labs CBC & Chem 7: 05/25/23 11:42 05/26/23 07:35 Assessment and Plan Assessment: 1. Status post left hip arthroplasty 2. Increased agitation. Patient started on Seroquel 3. Advanced vascular dementia 4. History of essential hypertension 5. History of hyperlipidemia DVT prophylaxis xarelto. GI prophylaxis Protonix Thank you for this consultation we will continue to follow patient clinically throughout stay Repeat labs ordered Social work services following for discharge planning
[2023-05-27] MEDS: OLANZapine ODT 5 MG TAB PO PRN (13:01)
[2023-05-27 15:39] LABS: Basophils # (A) 0.03 X 10*3/uL (0.00-0.10); Basophils % (A) 0.5 %; Eosinophils % (A) 1.6 %; HCT 23.7 % (37.2-46.3); Lymphocytes % (A) 17.4 %; MCH 25.4 pg (27.0-32.0); MCHC 29.5 d/dL (32.0-37.0); MCV 85.9 FL (80.0-97.0); Mean Platelet Volume 10.2 FL (9.5-12.2); Monocytes # (A) 0.54 X 10*3/uL (0.20-1.00); Monocytes % (A) 8.5 %; NRBC Per 100 WBC 0 X 10*3/uL (0.00-0.01); Neutrophils # (A) 4.54 X 10*3/uL (1.80-7.70); Neutrophils % (A) 71.7 %; Platelet Count 339 X 10*3/uL (140-440); RBC 2.76 X 10*6/uL (4.10-5.20); WBC 6.33 X 10*3/uL (4.50-10.00)
[2023-05-27] MEDS: ATORVASTATIN 20 MG TAB PO SCH (20:42)
[2023-05-27] MEDS: SENNOSIDES-DOCUSATE SODIUM 1 EACH TAB PO SCH (20:42)
[2023-05-28] MEDS: PANTOPRAZOLE 40 MG TABLET PO SCH (06:00)
[2023-05-28] MEDS: ASPIRIN 81 MG PO SCH (08:53)
[2023-05-28] MEDS: amLODIPine 10 MG TAB PO SCH (08:54)
[2023-05-28] MEDS: RIVAROXABAN 10 MG TAB PO SCH (08:54)
[2023-05-28] MEDS: THYROID, PORK 30 MG TAB PO SCH (09:01)
[2023-05-28 11:42] LABS: ALT 17 U/L (8-44); AST 17 U/L (13-35); Albumin 2.9 d/dL (3.8-4.9); Albumin/Globulin Ratio 1.45 Ratio (1.60-3.17); Alkaline Phosphatase 50 U/L (41-126); Blood Urea Nitrogen 10.5 mg/dL (9.0-27.0); Calcium 8.4 mg/dL (8.7-10.3); Carbon Dioxide 17.8 mmol/L (21.6-31.8); Chloride 108 mmol/L (96-109); Glucose 208 mg/dL (70-110); Potassium 4.5 mmol/L (3.5-5.5); Sodium 138 mmol/L (135-145); Total Bilirubin 0.5 mg/dL (0.3-1.2); Total Protein 4.9 d/dL (6.2-8.2)
--- NOTE | 2023-05-28 12:17 | P.DS ---
Providers Date of admission: 05/22/23 06:57 Expected date of discharge: 05/28/23 Attending physician: Kleber Montes Consults: 05/22/23 06:55 Consult Physician Routine Consulting Provider: Asiya Trejo Consult Reason/Comments: Jack Do you want consulting provider notified?: Yes Primary care physician: Stated None - Discharge Diagnosis(es) (1) Closed intertrochanteric fracture of left hip Current Visit: Yes Status: Acute (2) Closed left hip fracture Current Visit: Yes Status: Acute (3) Fall Current Visit: Yes Status: Acute Hospital Course: This is an 78-year-old female who sustained a fracture of her left hip after a fall at home on 05/22/2023. The patient presented for evaluation in the emergency room. After discussion and consideration the patient's family elects to proceed with closed reduction and intramedullary hip screw left hip. The patient is seen preoperatively by Dr. Montes and medically cleared for surgery by internal medicine. Patient is admitted to [facility] on 05/22/2023 and closed reduction and intramedullary hip screw left hip is performed on 05/22/2023. The procedure is performed without complication or sequelae. The patient is doing well postoperatively. Labs and vital signs are stable on day of discharge. On day of discharge patient's hip incision is healing well. There is minimal erythema. There is no drainage noted at this time. There is minimal soft tissue swelling to the hip and thigh. Patient has full foot and ankle motion without difficulty or pain. Calf is soft and nontender to palpation. Neurovascular status to the left lower extremity is intact. Patient is discharged to rehab in good condition. Please see [facility] rec for accurate list of home medications. Patient Condition at Discharge: Serious Plan - Discharge Summary Discharge Rx Participant: No New Discharge Prescriptions: New Sennosides [Senokot] 2 tab PO DAILY PRN #60 tablet PRN Reason: Constipation Rivaroxaban [Xarelto] 10 mg PO DAILY #35 tab Magnesium Hydroxide [Milk of Magnesia] 2,400 mg PO DAILY PRN ml PRN Reason: Constipation QUEtiapine [SEROquel] 12.5 mg PO HS PRN tab PRN Reason: Agitation Acetaminophen Tab [Tylenol] 650 mg PO Q6HR PRN tab PRN Reason: Fever And/ Or Pain traMADol HCl [Ultram] 1 - 2 tab PO Q6H PRN #32 tab PRN Reason: Pain OLANZapine ODT [ZyPREXA Zydis] 5 mg PO DAILY PRN tab PRN Reason: Anxiety Continue Thyroid,Pork [[place] Thyroid] 60 mg PO DAILY Aspirin 81 mg PO DAILY Atorvastatin [Lipitor] 20 mg PO HS tab Pantoprazole [Protonix] 40 mg PO AC-BRKFST tab metFORMIN HCL ER [Glucophage XR] 500 mg PO BID-W/MEALS amLODIPine [Norvasc] 10 mg PO DAILY tab Discontinued Ibuprofen [Motrin Ib] 200 mg PO Q8H PRN PRN Reason: Pain Or Fever > 100.5 Discharge Medication List Thyroid,Pork [[place] Thyroid] 60 mg PO DAILY 01/31/22 [History] Aspirin 81 mg PO DAILY 02/04/22 [Rx] Atorvastatin [Lipitor] 20 mg PO HS tab 02/04/22 [Rx] Pantoprazole [Protonix] 40 mg PO AC-BRKFST tab 02/04/22 [Rx] amLODIPine [Norvasc] 10 mg PO DAILY tab 02/04/22 [Rx] Rivaroxaban [Xarelto] 10 mg PO DAILY #35 tab 05/22/23 [Rx] Sennosides [Senokot] 2 tab PO DAILY PRN #60 tablet 05/22/23 [Rx] metFORMIN HCL ER [Glucophage XR] 500 mg PO BID-W/MEALS 05/22/23 [History] traMADol HCl [Ultram] 1 - 2 tab PO Q6H PRN #32 tab 05/22/23 [Rx] Acetaminophen Tab [Tylenol] 650 mg PO Q6HR PRN tab 05/27/23 [Rx] Magnesium Hydroxide [Milk of Magnesia] 2,400 mg PO DAILY PRN ml 05/27/23 [Rx] OLANZapine ODT [ZyPREXA Zydis] 5 mg PO DAILY PRN tab 05/27/23 [Rx] QUEtiapine [SEROquel] 12.5 mg PO HS PRN tab 05/27/23 [Rx] Follow up Appointment(s)/Referral(s): Tara Cook MD [STAFF PHYSICIAN] - As Needed Alize Lynn, [NON-STAFF] - As Needed Kleber Montes DO [Doctor of Osteopathic Medicine] - 06/12/23 10:00 am (please call office prior to appointment to preresgister) Activity/Diet/Wound Care/Special Instructions: 50% Weightbearing with a walker. Leave dressing intact. Dressing may be removed by home care nurse or by patient in 7 days. Then change dressing twice daily until follow up. May shower with initial dressing intact and after removal. If dressing become saturated, please remove. Please take Xarelto for one month postoperatively to help prevent blood clots. Recommend use of compression stockings daily until follow up to help prevent swelling and blood clots. May remove at night before sleeping. Please follow-up with [facility] in 2 weeks and call with any questions or concerns, . Discharge Disposition: TRANSFER TO SNF/ECF
--- NOTE | 2023-05-28 12:48 | P.PN ---
Subjective Progress Note Date: 05/28/23 this is a 78 year old female patient who presented to the ER after sustaining a fall at home. Patient does have a history of dementia with a baseline of alert and oriented 2. Patient underwent left hip arthoplasty on 05/22/2023. Patient has past medical history of hypertension, hyperlipidemia, diabetes mellitus and advanced vascular dementia. Apparently patient had episode of increased agitation and confusion at nighttime. Patient was started on Seroquel and human resources safety manager. Dr. Mccauley's group was covering for 05/22/2023 to 05/26/2023 On 05/27/2023 patient is alert and oriented to 1. Currently sitting in bed denies any pain. Denies chest pain or shortness of breath. Denies nausea vomiting or diarrhea. Left hip dressing is clean dry and intact. Discharge planning is in progress. Patient will likely need ECF upon discharge On 05/28/2023 patient was seen and examined on the medical floor she is alert slightly confused in no apparent distress she denies any pain or discomfort at this time, Angela catheter has been removed, discharge to a fdc for rehab was initiated by orthopedic surgery. Patient is medically cleared for discharge. Objective - Vital Signs Vital signs: Vital Signs Temp 99.3 F 05/28/23 06:55 Pulse 91 05/28/23 06:55 Resp 18 05/28/23 06:55 BP 145/81 05/28/23 06:55 Pulse Ox 98 05/28/23 06:55 FiO2 Intake & Output 05/27/23 05/28/23 05/28/23 18:59 06:59 18:59 Output Total 1370 Balance -1370 Output: Urine 1370 Other: Voiding Method Indwelling Catheter Indwelling Catheter # Bowel Movements 1 - Exam Head normocephalic Neck supple Lungs clear to auscultation bilaterally no wheezing or crackles Heart regular rate and rhythm S1-S2, no rub or gallop Abdomen is soft nontender nondistended positive bowel sounds no hepatosplenomegaly Extremities no edema. Left hip dressing clean dry and intact Neuro alert and orientated to 1. Known advanced dementia - Labs CBC & Chem 7: 05/27/23 09:18 05/28/23 06:19 Labs: Abnormal Lab Results - Last 24 Hours (Table) 05/27/23 Range/Units 09:18 RBC 2.76 L (4.10-5.20) X 10*6/uL Hgb 7.0 L (12.0-15.0) d/dL Hct 23.7 L (37.2-46.3) % MCH 25.4 L (27.0-32.0) pg MCHC 29.5 L (32.0-37.0) d/dL Assessment and Plan Assessment: 1. Status post left hip arthroplasty 2. Increased agitation. Patient started on Seroquel 3. Advanced vascular dementia 4. History of essential hypertension 5. History of hyperlipidemia DVT prophylaxis xarelto. GI prophylaxis Protonix Thank you for this consultation we will continue to follow patient clinically throughout stay Repeat labs ordered Social work services following for discharge planning
[2023-05-28 13:05] LABS: Basophils # (A) 0.07 X 10*3/uL (0.00-0.10); Basophils % (A) 0.8 %; Eosinophils # (A) 0.16 X 10*3/uL (0.04-0.35); Eosinophils % (A) 1.8 %; HGB 6.9 d/dL (12.0-15.0); Lymphocytes # (A) 1.87 X 10*3/uL (0.90-5.00); Lymphocytes % (A) 21.6 %; MCHC 28.8 d/dL (32.0-37.0); Monocytes # (A) 0.77 X 10*3/uL (0.20-1.00); Monocytes % (A) 8.9 %; NRBC Per 100 WBC 0.02 X 10*3/uL (0.00-0.01); Neutrophils # (A) 5.75 X 10*3/uL (1.80-7.70); Neutrophils % (A) 66.4 %; Platelet Count 365 X 10*3/uL (140-440); RBC 2.76 X 10*6/uL (4.10-5.20); RDW 12.9 % (11.5-14.5); WBC 8.66 X 10*3/uL (4.50-10.00)
[2023-05-28 14:16] VITALS: BMI 24.7
--- NOTE | 2023-05-28 15:35 | P.PN ---
Subjective Progress Note Date: 05/28/23 this is a 78 year old female patient who presented to the ER after sustaining a fall at home. Patient does have a history of dementia with a baseline of alert and oriented 2. Patient underwent left hip arthoplasty on 05/22/2023. Patient has past medical history of hypertension, hyperlipidemia, diabetes mellitus and advanced vascular dementia. Apparently patient had episode of increased agitation and confusion at nighttime. 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 Dr. Mccauley's group was covering for 05/22/2023 to 05/26/2023 On 05/27/2023 patient is alert and oriented to 1. Currently sitting in bed denies any pain. Denies chest pain or shortness of breath. Denies nausea vomiting or diarrhea. Left hip dressing is clean dry and intact. Discharge planning is in progress. Patient will likely need ECF upon discharge On 05/28/2023 patient was seen and examined on the medical floor she is alert slightly confused in no apparent distress she denies any pain or discomfort at this time, Angela catheter has been removed, discharge to a long-term for rehab was initiated by orthopedic surgery. Patient is medically cleared for discharge. Hemoglobin today came back at 6.9 at this time will hold discharge will transfuse 1 unit of red blood cells plan for discharge tomorrow Objective - Vital Signs Vital signs: Vital Signs Temp 98.1 F 05/28/23 14:00 Pulse 104 H 05/28/23 14:00 Resp 16 05/28/23 14:00 BP 133/60 05/28/23 14:00 Pulse Ox 97 05/28/23 14:00 FiO2 Intake & Output 05/27/23 05/28/23 05/28/23 18:59 06:59 18:59 Output Total 1370 1200 Balance -1370 -1200 Weight 63.503 kg Output: Urine 1370 1200 Other: Voiding Method Indwelling Catheter Indwelling Catheter Indwelling Catheter # Voids 1 # Bowel Movements 1 1 - Exam Head normocephalic Neck supple Lungs clear to auscultation bilaterally no wheezing or crackles Heart regular rate and rhythm S1-S2, no rub or gallop Abdomen is soft nontender nondistended positive bowel sounds no hepatosplenomegaly Extremities no edema. Left hip dressing clean dry and intact Neuro alert and orientated to 1. Known advanced dementia - Labs CBC & Chem 7: 05/28/23 06:19 05/28/23 06:19 Labs: Abnormal Lab Results - Last 24 Hours (Table) 05/27/23 05/28/23 05/28/23 Range/Units 09:18 06:19 06:19 RBC 2.76 L 2.76 L (4.10-5.20) X 10*6/uL Hgb 7.0 L 6.9 H* (12.0-15.0) d/dL Hct 23.7 L 24.0 L (37.2-46.3) % MCH 25.4 L 25.0 L (27.0-32.0) pg MCHC 29.5 L 28.8 L (32.0-37.0) d/dL NRBC/100 WBC Diff 0.02 H (0.00-0.01) X 10*3/uL Carbon Dioxide 17.8 L (21.6-31.8) mmol/L Anion Gap 12.20 H (4.00-12.00) mmol/L Creatinine 0.5 L (0.6-1.5) mg/dL BUN/Creatinine Ratio 21.00 H (12.00-20.00) Ratio Glucose 208 H (70-110) mg/dL Calcium 8.4 L (8.7-10.3) mg/dL Total Protein 4.9 L (6.2-8.2) d/dL Albumin 2.9 L (3.8-4.9) d/dL Albumin/Globulin Ratio 1.45 L (1.60-3.17) Ratio Crossmatch 05/28/23 Range/Units 14:12 RBC (4.10-5.20) X 10*6/uL Hgb (12.0-15.0) d/dL Hct (37.2-46.3) % MCH (27.0-32.0) pg MCHC (32.0-37.0) d/dL NRBC/100 WBC Diff (0.00-0.01) X 10*3/uL Carbon Dioxide (21.6-31.8) mmol/L Anion Gap (4.00-12.00) mmol/L Creatinine (0.6-1.5) mg/dL BUN/Creatinine Ratio (12.00-20.00) Ratio Glucose (70-110) mg/dL Calcium (8.7-10.3) mg/dL Total Protein (6.2-8.2) d/dL Albumin (3.8-4.9) d/dL Albumin/Globulin Ratio (1.60-3.17) Ratio Crossmatch See Detail Assessment and Plan Assessment: 1. Status post left hip arthroplasty 2. Increased agitation. Patient started on Seroquel 3. Advanced vascular dementia 4. History of essential hypertension 5. History of hyperlipidemia DVT prophylaxis xarelto. GI prophylaxis Protonix Thank you for this consultation we will continue to follow patient clinically throughout stay Repeat labs ordered Social work services following for discharge planning
[2023-05-28] MEDS: ATORVASTATIN 20 MG TAB PO SCH (21:32)
[2023-05-28] MEDS: SENNOSIDES-DOCUSATE SODIUM 1 EACH TAB PO SCH (21:32)
[2023-05-28] MEDS: ACETAMINOPHEN TAB 325 MG TAB PO PRN (21:32)
[2023-05-29] MEDS: PANTOPRAZOLE 40 MG TABLET PO SCH (05:36)
[2023-05-29] MEDS: ACETAMINOPHEN TAB 325 MG TAB PO PRN (05:36)
[2023-05-29 06:40] VITALS: BP 129/80; PULSE 85; RESP 18; TEMP 98.3
[2023-05-29 06:49] LABS: Basophils % (A) 0 %; Eosinophils # (A) 0.1 k/uL (0-0.7); Eosinophils % (A) 1 %; HGB 9.8 gm/dL (11.4-16.0); Hypochromasia Moderate; Lymphocytes # (A) 1.9 k/uL (1.0-4.8); Lymphocytes % (A) 21 %; MCH 26.8 pg (25.0-35.0); MCHC 31.8 g/dL (31.0-37.0); MCV 84.5 fL (80.0-100.0); Monocytes # (A) 0.5 k/uL (0-1.0); Monocytes % (A) 6 %; Neutrophils # (A) 6.2 k/uL (1.3-7.7); Neutrophils % (A) 70 %; Platelet Count 411 k/uL (150-450); Poikilocytosis Slight; RBC 3.67 m/uL (3.80-5.40); RDW 14.1 % (11.5-15.5)
[2023-05-29 06:53] LABS: African American GFR (CKD) >90 (>60 ml/min/1.73 sqM); Anion Gap 9 mmol/L; Blood Urea Nitrogen 13 mg/dL (7-17); Calcium 8.5 mg/dL (8.4-10.2); Carbon Dioxide 22 mmol/L (22-30); Chloride 106 mmol/L (98-107); Glucose 202 mg/dL (74-99); Non-African American GFR(CKD) >90 (>60 ml/min/1.73 sqM); Sodium 137 mmol/L (137-145)
[2023-05-29 07:06] LABS: Potassium 4.9 mmol/L (3.5-5.1)
[2023-05-29] MEDS: RIVAROXABAN 10 MG TAB PO SCH (09:51)
[2023-05-29] MEDS: ASPIRIN 81 MG PO SCH (09:51)
[2023-05-29] MEDS: amLODIPine 10 MG TAB PO SCH (09:51)
[2023-05-29] MEDS: THYROID, PORK 30 MG TAB PO SCH (09:51)
--- NOTE | 2023-05-29 10:06 | P.PN ---
Subjective Progress Note Date: 05/29/23 this is a 78 year old female patient who presented to the ER after sustaining a fall at home. Patient does have a history of dementia with a baseline of alert and oriented 2. Patient underwent left hip arthoplasty on 05/22/2023. Patient has past medical history of hypertension, hyperlipidemia, diabetes mellitus and advanced vascular dementia. Apparently patient had episode of increased agitation and confusion at nighttime. 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 Dr. Mccauley's group was covering for 05/22/2023 to 05/26/2023 On 05/27/2023 patient is alert and oriented to 1. Currently sitting in bed denies any pain. Denies chest pain or shortness of breath. Denies nausea vomiting or diarrhea. Left hip dressing is clean dry and intact. Discharge planning is in progress. Patient will likely need ECF upon discharge On 05/28/2023 patient was seen and examined on the medical floor she is alert slightly confused in no apparent distress she denies any pain or discomfort at this time, Angela catheter has been removed, discharge to a long-term for rehab was initiated by orthopedic surgery. Patient is medically cleared for discharge. Hemoglobin today came back at 6.9 at this time will hold discharge will transfuse 1 unit of red blood cells plan for discharge tomorrow On 05/29/2023 patient is alert but remains confused at times. Status post 1 unit PRBCs. Hemoglobin 9.8 patient will be DC'd to rehab today per orthopedic services. Patient will be DC'd to [facility]. Patient denies chest pain or shortness of breath. Patient denies nausea vomiting or diarrhea. Patient denies any urinary burning or frequency Objective - Vital Signs Vital signs: Vital Signs Temp 98.3 F 05/29/23 06:39 Pulse 85 05/29/23 06:39 Resp 18 05/29/23 06:39 BP 129/80 05/29/23 06:39 Pulse Ox 97 05/29/23 06:39 FiO2 Intake & Output 05/28/23 05/29/23 05/29/23 18:59 06:59 18:59 Intake Total 860 Output Total 1200 Balance -340 Weight 63.503 kg Intake: Oral 240 Blood Product 620 Rc As-1 Unit 310 [id number] Output: Urine 1200 Other: Voiding Method Indwelling Catheter Diaper Incontinent # Voids 1 1 # Bowel Movements 1 - Exam Head normocephalic Neck supple Lungs clear to auscultation bilaterally no wheezing or crackles Heart regular rate and rhythm S1-S2, no rub or gallop Abdomen is soft nontender nondistended positive bowel sounds no hepatosplenomegaly Extremities no edema. Left hip dressing clean dry and intact Neuro alert and orientated to 1. Known advanced dementia - Labs CBC & Chem 7: 05/29/23 05:45 05/29/23 05:45 Labs: Abnormal Lab Results - Last 24 Hours (Table) 05/28/23 05/28/23 05/28/23 Range/Units 06:19 06:19 14:12 RBC 2.76 L (4.10-5.20) X 10*6/uL Hgb 6.9 H* (12.0-15.0) d/dL Hct 24.0 L (37.2-46.3) % MCH 25.0 L (27.0-32.0) pg MCHC 28.8 L (32.0-37.0) d/dL NRBC/100 WBC Diff 0.02 H (0.00-0.01) X 10*3/uL Carbon Dioxide 17.8 L (21.6-31.8) mmol/L Anion Gap 12.20 H (4.00-12.00) mmol/L Creatinine 0.5 L (0.6-1.5) mg/dL BUN/Creatinine Ratio 21.00 H (12.00-20.00) Ratio Glucose 208 H (70-110) mg/dL Calcium 8.4 L (8.7-10.3) mg/dL Total Protein 4.9 L (6.2-8.2) d/dL Albumin 2.9 L (3.8-4.9) d/dL Albumin/Globulin Ratio 1.45 L (1.60-3.17) Ratio Crossmatch See Detail 05/29/23 05/29/23 Range/Units 05:45 05:45 RBC 3.67 L (4.10-5.20) X 10*6/uL Hgb 9.8 L D (12.0-15.0) d/dL Hct 31.0 L (37.2-46.3) % MCH (27.0-32.0) pg MCHC (32.0-37.0) d/dL NRBC/100 WBC Diff (0.00-0.01) X 10*3/uL Carbon Dioxide (21.6-31.8) mmol/L Anion Gap (4.00-12.00) mmol/L Creatinine 0.44 L (0.6-1.5) mg/dL BUN/Creatinine Ratio (12.00-20.00) Ratio Glucose 202 H (70-110) mg/dL Calcium (8.7-10.3) mg/dL Total Protein (6.2-8.2) d/dL Albumin (3.8-4.9) d/dL Albumin/Globulin Ratio (1.60-3.17) Ratio Crossmatch Assessment and Plan Assessment: 1. Status post left hip arthroplasty 2. Increased agitation. Patient started on Seroquel 3. Advanced vascular dementia 4. History of essential hypertension 5. History of hyperlipidemia DVT prophylaxis xarelto. GI prophylaxis Protonix Thank you for this consultation we will continue to follow patient clinically throughout stay Repeat labs ordered Social work services following for discharge planning
--- NOTE | 2023-05-29 14:02 | CDI ---
Documentation Clarification Form Date: 05/29/2023 01:45:30 PM From: Chen Zhang RN, CCDS Admit Date: 05/22/2023 06:57:00 AM Patient Name: Janene Ponce Visit Number: [id number] Discharge Date: ATTENTION: The Clinical Documentation Specialists (CDI) and [facility] Coding Staff appreciate your assistance in clarifying documentation. Please respond to the clarification below the line at the bottom and electronically sign. The CDI & [facility] Coding staff will review the response and follow-up if needed. Please note: Queries are made part of the Legal Health Record. If you have any questions, please contact the author of this message via ITS. Dr. Kleber Montes 05/28 progress note has discharge was postponed due to low hemoglobin. Based on this information and the findings below, is there an additional diagnosis that is clinically appropriate for this patient? Patient history/risk factors: Diabetes Mellitus, Hypertension, Thyroid Disorder Clinical Indicators: 78-year-old male present with fall left hip pain, ruled in for left hip fracture. 05/22 Labs: HGB 10.1, HCT 33.3 05/22 Procedure: Closed four-part intertrochanteric fracture left hip. Estimated blood loss (ml):100 7/1 HGB 8.1, HCT 26.5 7/2 HGB 7.2 HCT 23.5 7/5 HGB 7.0 HCT 23.7 /6 HGB 6.9 HCT 24.0 7/7 HGB 9.8 HCT 31.0 After 1 unit PRBC Treatment: Transfused 1 Unit PRBC Monitor CBC per orders Is there an additional diagnosis that is clinically appropriate for this patient? [ x] Acute blood loss anemia, expected] [ ] Unable to determine [ ] Other, please specify (Template Last Reviewed: December 2022) MTDD
== END 2023-05-29 14:43 | DRG 481 ==
LOC: EC 05:07 → 4SSUR 06:57
PROVIDERS: ADMIT Orthopaedic Surgery; ATTEND Orthopaedic Surgery
PROC: 0QS736Z Reposition Left Upper Femur with Intramedullary Internal Fixation Device, Percutaneous Approach (ICD-10-PCS; principal; 2023-05-22 10:20)
PROC: 30233N1 Transfusion of Nonautologous Red Blood Cells into Peripheral Vein, Percutaneous Approach (ICD-10-PCS; 2023-05-28)
DX: S72.142A Displaced intertrochanteric fracture of left femur, initial encounter for closed fracture (principal); D62 Acute posthemorrhagic anemia; F01.C11 Vascular dementia, severe, with agitation; G30.9 Alzheimer's disease, unspecified; I10 Essential (primary) hypertension; W01.0XXA Fall on same level from slipping, tripping and stumbling without subsequent striking against object, initial encounter; E78.5 Hyperlipidemia, unspecified; E11.9 Type 2 diabetes mellitus without complications; Z96.642 Presence of left artificial hip joint; Y92.009 Unspecified place in unspecified non-institutional (private) residence as the place of occurrence of the external cause; Z79.01 Long term (current) use of anticoagulants; Z79.82 Long term (current) use of aspirin; Z79.84 Long term (current) use of oral hypoglycemic drugs; Z79.899 Other long term (current) drug therapy; Z86.73 Personal history of transient ischemic attack (TIA), and cerebral infarction without residual deficits; Z88.5 Allergy status to narcotic agent; Z88.0 Allergy status to penicillin; Z88.2 Allergy status to sulfonamides; Z88.8 Allergy status to other drugs, medicaments and biological substances
CPT/HCPCS: 36415; 71045; 73501; 73502; 80048; 80053; 83735; 84100; 84484; 85025; 85027; 85610; 85730; 86850; 86900; 86901; 86920; 93005; 94760; 96361; 96374; 96375; 96376; 99285

== ENCOUNTER 2023-09-01 17:31 | Emergency (ER) | payer MEDICARE, OTHER ==
[2023-09-01 18:11] VITALS: TEMP 98.6
--- NOTE | 2023-09-01 18:12 | ED ---
Recheck HPI - General Source: patient, RN notes reviewed Mode of arrival: wheelchair Limitations: no limitations <Kleber Leon - Last Filed: 09/01/23 18:10> - General Source: patient, family, RN notes reviewed Limitations: no limitations <Pan Hurtado - Last Filed: 09/01/23 21:05> - General Chief Complaint: Recheck/Abnormal Lab/Rx Stated Complaint: blood transfusion Time Seen by Provider: 09/01/23 18:10 - History of Present Illness Initial Comments: 78-year-old female presents emergency from with family for evaluation of a near. Patient was sent in by PCP for hemoglobin of 6. Patient denies any bleeding denies any melena stools patient did receive blood transfusion after hip surgery in the past but no other times. Patient has no complaints herself. (Kleber Leon) Patient is a pleasant 78-year-old female presenting to the emergency department with concerns for anemia. Patient does have history of hip surgery a couple months ago and has had some anemia since that time. Blood work from a couple of days ago did show patient to be more anemic with hemoglobin of 6. something. Patient does have some fatigue however this is chronic and unchanged. No bleeding. No rectal bleeding. No black stools. No dyspnea. Patient has no complaints at this time. Family helps provide history as patient is a poor historian. (Pan Hurtado) - Related Data Home Medications Medication Instructions Recorded Confirmed Thyroid,Pork [[place] Thyroid] 60 mg PO DAILY 01/31/22 05/22/23 metFORMIN HCL ER [Glucophage XR] 500 mg PO BID-W/MEALS 05/22/23 05/22/23 Previous Rx's Medication Instructions Recorded Aspirin 81 mg PO DAILY 02/04/22 Atorvastatin [Lipitor] 20 mg PO HS tab 02/04/22 Pantoprazole [Protonix] 40 mg PO AC-BRKFST tab 02/04/22 amLODIPine [Norvasc] 10 mg PO DAILY tab 02/04/22 Rivaroxaban [Xarelto] 10 mg PO DAILY #35 tab 05/22/23 Sennosides [Senokot] 2 tab PO DAILY PRN #60 tablet 05/22/23 traMADol HCl [Ultram] 1 - 2 tab PO Q6H PRN #32 tab 05/22/23 Acetaminophen Tab [Tylenol] 650 mg PO Q6HR PRN tab 05/27/23 Magnesium Hydroxide [Milk of 2,400 mg PO DAILY PRN ml 05/27/23 Magnesia] OLANZapine ODT [ZyPREXA Zydis] 5 mg PO DAILY PRN tab 05/27/23 QUEtiapine [SEROquel] 12.5 mg PO HS PRN tab 05/27/23 Allergies Allergy/AdvReac Type Severity Reaction Status Date / Time codeine Allergy Unknown - Verified 09/01/23 18:08 Per PCP office hydralazine Allergy Unknown - Verified 09/01/23 18:08 Per PCP office isosorbide [From Imdur] Allergy Unknown - Verified 09/01/23 18:08 Per PCP office losartan [From Cozaar] Allergy Unknown - Verified 09/01/23 18:08 Per PCP office Penicillins Allergy Unknown - Verified 09/01/23 18:08 Per PCP office Sulfa (Sulfonamide Allergy Unknown - Verified 09/01/23 18:08 Antibiotics) Per PCP office Review of Systems ROS Other: All systems not noted in ROS Statement are negative. <Kleber Leon - Last Filed: 09/01/23 18:10> ROS Other: All systems not noted in ROS Statement are negative. Constitutional: Denies: fever Eyes: Denies: eye pain ENT: Denies: ear pain Respiratory: Denies: cough, dyspnea Cardiovascular: Denies: chest pain, dyspnea on exertion Endocrine: Reports: fatigue Gastrointestinal: Denies: abdominal pain, hematemesis, melena, hematochezia <Pan Hurtado - Last Filed: 09/01/23 21:05> ROS Statement: Those systems with pertinent positive or pertinent negative responses have been documented in the HPI. Past Medical History Past Medical History: Dementia, Diabetes Mellitus, Hypertension, Thyroid Disorder Additional Past Medical History / Comment(s): low hemaglobin, History of Any Multi-Drug Resistant Organisms: None Reported Past Surgical History: Orthopedic Surgery Additional Past Surgical History / Comment(s): left hip surgery Past Anesthesia/Blood Transfusion Reactions: Unable to Obtain Past Psychological History: No Psychological Hx Reported Smoking Status: Never smoker Past Alcohol Use History: None Reported Past Drug Use History: None Reported <Kleber Leon - Last Filed: 09/01/23 18:10> General Exam Limitations: no limitations <Kleber Leon - Last Filed: 09/01/23 18:10> Limitations: no limitations, language barrier General appearance: in no apparent distress Head exam: Present: atraumatic Eye exam: Present: normal appearance Neck exam: Present: normal inspection Respiratory exam: Present: normal lung sounds bilaterally Cardiovascular Exam: Present: regular rate, normal rhythm GI/Abdominal exam: Present: soft. Absent: tenderness Extremities exam: Present: normal inspection Neurological exam: Present: alert Psychiatric exam: Present: normal affect, normal mood Skin exam: Present: normal color <Pan Hurtado - Last Filed: 09/01/23 21:05> - General Exam Comments Initial Comments: Visual Physical Exam Vital signs reviewed General: Well-appearing, nontoxic, no acute distress. Head: Normocephalic, atraumatic Eyes: PERRLA, EOMI ENT: Airway patent Chest: Nonlabored breathing Skin: No visual rash, normal skin tone Neuro: Alert and oriented 3 Musculoskeletal: No gross abnormalities (Kleber Leon) Course Vital Signs 09/01/23 18:04 Temperature 98.6 F Pulse Rate 86 Respiratory 18 Rate Blood Pressure 122/65 O2 Sat by Pulse 99 Oximetry Medical Decision Making <Kleber Leon - Last Filed: 09/01/23 18:10> - Lab Data Result diagrams: 09/01/23 19:48 09/01/23 19:48 <Pan Hurtado - Last Filed: 09/01/23 21:05> - Medical Decision Making I performed a completed note portion of this chart signed Kleber Leon PA-C (Kleber Leon) Was pt. sent in by a medical professional or institution (AMANDA Ruiz, GOL[employer]MER, urgent care, hospital, or [place] health care facility...) When possible be specific @ -Patient was sent by her primary care physician Did you speak to anyone other than the patient for history (EMS, parent, family, police, friend...)? What history was obtained from this source @ -Family is present and provides majority of history as patient is a poor historian. Did you review nursing and triage notes (agree or disagree)? Why? @ -I reviewed and agree with nursing and triage notes Were old charts reviewed (outside hosp., previous admission, EMS record, old EKG, old radiological studies, urgent care reports/EKG's, [place] health care facility records)? Report findings @ -No old charts were reviewed Differential Diagnosis (chest pain, altered mental status, abdominal pain women, abdominal pain men, vaginal bleeding, weakness, fever, dyspnea, syncope, headache, dizziness, GI bleed, back pain, seizure, CVA, palpatations, mental health, musculoskeletal)? @ -Differential Weakness: Hypoglycemia, shock, sepsis, hyponatremia, anemia, infection, MA, ETOH, adverse medicine reaction, overdose, stroke, this is not meant to be an all-inclusive list. EKG interpreted by me (3pts min.). @ -As above X-rays interpreted by me (1pt min.). @ -None done CT interpreted by me (1pt min.). @ -None done U/S interpreted by me (1pt. min.). @ -None done What testing was considered but not performed or refused? (CT, X-rays, U/S, labs)? Why? @ -None What meds were considered but not given or refused? Why? @ -None Did you discuss the management of the patient with other professionals (professionals i.e. , PA, GOLF BALL TRIMMER, lab, RT, psych nurse, administrator social welfare, caretaker resort, teacher, ordnance corps officer, rn case manager hospice)? Give summary @ -No Was smoking cessation discussed for >3mins.? @ -No Was critical care preformed (if so, how long)? @ -No Were there social determinants of health that impacted care today? How? (Homelessness, low income, unemployed, alcoholism, drug addiction, transportation, low edu. Level, literacy, decrease access to med. care, skilled nursing, rehab)? @ -No Was there de-escalation of care discussed even if they declined (Discuss DNR or withdrawal of care, Hospice)? DNR status @ -No What co-morbidities impacted this encounter? (DM, HTN, Smoking, COPD, CAD, Cancer, CVA, ARF, Chemo, Hep., AIDS, mental health diagnosis, sleep apnea, morbid obesity)? @ -None Was patient admitted / discharged? Hospital course, mention meds given and route, prescriptions, significant lab abnormalities, going to OR and other pertinent info. @ -Patient and family are updated on results. Patient has hemoglobin of 7.9 and has not missed a transfusion at this time. Patient and family are req uesting discharge home. They are advised close follow-up and repeat blood level in the next day or 2. Undiagnosed new problem with uncertain prognosis? @ -No Drug Therapy requiring intensive monitoring for toxicity (Heparin, Nitro, Insulin, Cardizem)? @ -No Were any procedures done? @ -No Diagnosis/symptom? @ -Anemia Acute, or Chronic, or Acute on Chronic? @ -Acute on chronic Uncomplicated (without systemic symptoms) or Complicated (systemic symptoms)? @ -default Side effects of treatment? @ -No Exacerbation, Progression, or Severe Exacerbation? @ -No Poses a threat to life or bodily function? How? (Chest pain, USA, MA, pneumonia, PE, COPD, DKA, ARF, appy, cholecystitis, CVA, Diverticulitis, Homicidal, Suicidal, threat to staff... and all critical care pts) @ -No (Pan Hurtado) - Lab Data Lab Results 09/01/23 09/01/23 09/01/23 Range/Units 19:48 19:48 19:48 WBC 5.4 (3.8-10.6) k/uL RBC 4.00 (3.80-5.40) m/uL Hgb 7.9 L (11.4-16.0) gm/dL Hct 27.3 L (34.0-46.0) % MCV 68.3 L (80.0-100.0) fL MCH 19.8 L (25.0-35.0) pg MCHC 29.1 L (31.0-37.0) g/dL RDW 15.1 (11.5-15.5) % Plt Count 531 H (150-450) k/uL MPV 7.4 Neutrophils % 58 % Lymphocytes % 29 % Monocytes % 9 % Eosinophils % 1 % Basophils % 1 % Neutrophils # 3.2 (1.3-7.7) k/uL Lymphocytes # 1.6 (1.0-4.8) k/uL Monocytes # 0.5 (0-1.0) k/uL Eosinophils # 0.1 (0-0.7) k/uL Basophils # 0.0 (0-0.2) k/uL Hypochromasia Marked Poikilocytosis Slight Microcytosis Marked PT 10.1 (9.0-12.0) sec INR 0.9 (<1.2) APTT 20.5 L (22.0-30.0) sec Sodium 138 (137-145) mmol/L Potassium 4.4 (3.5-5.1) mmol/L Chloride 100 (98-107) mmol/L Carbon Dioxide 20 L (22-30) mmol/L Anion Gap 18 mmol/L BUN 11 (7-17) mg/dL Creatinine 0.46 L (0.52-1.04) mg/dL Est GFR (CKD-EPI)AfAm >90 (>60 ml/min/1.73 sqM) Est GFR (CKD-EPI)NonAf >90 (>60 ml/min/1.73 sqM) Glucose 130 H (74-99) mg/dL Calcium 9.9 (8.4-10.2) mg/dL Total Bilirubin 0.4 (0.2-1.3) mg/dL AST 27 (14-36) U/L ALT 18 (4-34) U/L Alkaline Phosphatase 95 (38-126) U/L Total Protein 7.3 (6.3-8.2) g/dL Albumin 4.6 (3.5-5.0) g/dL Disposition <Kleber Leon - Last Filed: 09/01/23 18:10> Is patient prescribed a controlled substance at d/c from ED?: No Time of Disposition: 21:04 <Pan Hurtado - Last Filed: 09/01/23 21:05> Clinical Impression: Anemia Disposition: HOME SELF-CARE Condition: Stable Instructions (If sedation given, give patient instructions): Anemia (ED) Additional Instructions: Please do follow-up with your primary care physician in the next one or 2 days for recheck. Please have your hemoglobin rechecked. Return for weakness, bleeding, dark stools, increased fatigue, shortness of breath, pale, worsening symptoms or any other concerns. Referrals: Nonstaff,Physician [Primary Care Provider] - 1-2 days Tara Cook MD [STAFF PHYSICIAN] - 1-2 days
[2023-09-01 20:19] LABS: Basophils % (A) 1 %; Eosinophils # (A) 0.1 k/uL (0-0.7); Eosinophils % (A) 1 %; HCT 27.3 % (34.0-46.0); HGB 7.9 gm/dL (11.4-16.0); Hypochromasia Marked; Lymphocytes # (A) 1.6 k/uL (1.0-4.8); Lymphocytes % (A) 29 %; MCH 19.8 pg (25.0-35.0); MCHC 29.1 g/dL (31.0-37.0); MCV 68.3 fL (80.0-100.0); Mean Platelet Volume 7.4; Microcytosis Marked; Monocytes # (A) 0.5 k/uL (0-1.0); Monocytes % (A) 9 %; Neutrophils # (A) 3.2 k/uL (1.3-7.7); Neutrophils % (A) 58 %; Platelet Count 531 k/uL (150-450); Poikilocytosis Slight; RDW 15.1 % (11.5-15.5); WBC 5.4 k/uL (3.8-10.6)
[2023-09-01 20:37] LABS: INR 0.9 (<1.2); Prothrombin Time 10.1 sec (9.0-12.0)
[2023-09-01 20:40] LABS: Partial Thromboplastin Time 20.5 sec (22.0-30.0)
[2023-09-01 20:49] LABS: ALT 18 U/L (4-34); AST 27 U/L (14-36); African American GFR (CKD) >90 (>60 ml/min/1.73 sqM); Albumin 4.6 g/dL (3.5-5.0); Alkaline Phosphatase 95 U/L (38-126); Anion Gap 18 mmol/L; Blood Urea Nitrogen 11 mg/dL (7-17); Calcium 9.9 mg/dL (8.4-10.2); Carbon Dioxide 20 mmol/L (22-30); Chloride 100 mmol/L (98-107); Glucose 130 mg/dL (74-99); Non-African American GFR(CKD) >90 (>60 ml/min/1.73 sqM); Potassium 4.4 mmol/L (3.5-5.1); Sodium 138 mmol/L (137-145); Total Bilirubin 0.4 mg/dL (0.2-1.3); Total Protein 7.3 g/dL (6.3-8.2)
[2023-09-01 21:26] VITALS: BP 146/71; PULSE 89; RESP 19
== END 2023-09-01 21:25 | disposition home or self-care (01) ==
LOC: EC 17:31
DX: D64.9 Anemia, unspecified (principal); E11.9 Type 2 diabetes mellitus without complications; I10 Essential (primary) hypertension; E07.9 Disorder of thyroid, unspecified; Z79.84 Long term (current) use of oral hypoglycemic drugs; Z79.890 Hormone replacement therapy; Z88.0 Allergy status to penicillin; Z88.2 Allergy status to sulfonamides; Z88.5 Allergy status to narcotic agent; Z88.8 Allergy status to other drugs, medicaments and biological substances
CPT/HCPCS: 36415; 80053; 85025; 85610; 85730; 86850; 86900; 86901; 99283